=== PATIENT | male | born 1960 | race Caucasian/White ===

== ENCOUNTER 2016-10-18 10:37 | Emergency (ER) | payer BC ==
[2016-10-18] MEDS ORDERED: HYDROmorphone 0.5 MG/0.5 ML Syringe IVPUSH ONE (11:12)
[2016-10-18] MEDS ORDERED: Sodium Chloride 0.9% 10 ML Syringe FLUSH PRN (11:13)
--- NOTE | 2016-10-18 11:14 | EDM.PDOC ---
ED HPI GENERAL MEDICAL PROBLEM - General Chief Complaint: Back Pain or Injury Stated Complaint: SOB/BACK PAIN Time Seen by Provider: 10/18/16 11:00 Source of Information: Reports: Patient History Limitations: Reports: No Limitations - History of Present Illness INITIAL COMMENTS - FREE TEXT/NARRATIVE: 55-year-old male presents for evaluation and treatment of right sided severe back pain. Patient reports that the pain has been present for the last for 5 days. Reports that he has been using Biofreeze and Aleve but has had no relief. He reports that the pain is a sharp stabbing pain and rates it as a 9 out of 10 with movement. Reports the pain is a is 7 out of 10 currently and at rest. Pain is made worse with movement and deep breathing. Patient reports associated symptoms of diaphoresis, shortness of breath and a slight cough. Located on the right side and back. Patient denies any nausea, vomiting, chest pain, headaches , lightheadedness, dizziness, syncope, abdominal pain, fevers or chills. Patient also feels that he has been more gassy the last 3 days. Patient reports that he currently smokes 3 cores of a pack of cigarettes a day. He has smoked for the last 40 years. Reports a smokes 2 packs a day at the most. Patient has no history of diabetes. Reports that he has hepatitis C and is currently on treatment for this. 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 He denies any known trauma to the area. Right Upper Back Pain Score (Numeric/FACES): 10 - Related Data Allergies Allergy/AdvReac Type Severity Reaction Status Date / Time codeine Allergy Nausea Verified 10/18/16 11:00 Home Meds: Home Meds Paxil. 06/13/16 [History] oxyCODONE HCl/Acetaminophen [Percocet 5-325 mg Tablet] 1 - 2 each PO Q6HR PRN # 20 tablet 06/13/16 [Rx] Ibuprofen 800 mg PO TID #30 tablet 10/18/16 [Rx] Orphenadrine [Norflex] 100 mg PO BID #20 tab.er 10/18/16 [Rx] Past Medical History Other HEENT History: wears reading glasses Other Respiratory History: states pt snores and stops breathing for brief periods. Other Musculoskeletal History: L) index finger--tip amputation. Psychiatric History: Reports: Anxiety, Depression - Infectious Disease History Infectious Disease History: Reports: Hepatitis C - Past Surgical History GI Surgical History: Reports: Cholecystectomy Other Musculoskeletal Surgeries/Procedures:: pins/plate to R) ankle, L) shoulder rotator cuff surgery Social & Family History - Tobacco Use Smoking Status *Q: Current Every Day Smoker Years of Tobacco use: 35 Packs/Tins Daily: 1 - Caffeine Use Caffeine Use: Reports: Coffee, Tea - Alcohol Use Days Per Week of Alcohol Use: 2 Number of Drinks Per Day: 6 Total Drinks Per Week: 12 - Recreational Drug Use Recreational Drug Use: No Drug Use in Last 12 Months: No Recreational Drug Type: Reports: Marijuana/Hashish, Methamphetamine ED ROS GENERAL - Review of Systems Review Of Systems: See Below Constitutional: Denies: Fever HEENT: Denies: Ear Pain, Sinus Problem Respiratory: Reports: Shortness of Breath, Cough Cardiovascular: Denies: Chest Pain, Lightheadedness, Syncope GI/Abdominal: Denies: Abdominal Pain, Nausea, Vomiting Musculoskeletal: Reports: Back Pain (right upper back; worse with movement) Neurological: Denies: Headache ED EXAM, UPPER BACK/NECK PAIN - Physical Exam Exam: See Below Exam Limited By: No Limitations General Appearance: Alert, WD/WN, No Apparent Distress Nose Exam: Normal Inspection Throat/Mouth Exam: Normal Inspection, Normal Lips, Normal Voice, No Airway Compromise Cardiovascular/Respiratory: Regular Rate, Rhythm, No M/R/G, Normal Peripheral Pulses GI/Abdominal: Soft, Non-Tender Back Exam: Normal Inspection, Paraspinal Tenderness (inferior to the right scapula). No: Vertebral Tenderness Extremities: Normal Inspection, Normal Range of Motion (pain with ROM of the right shoulder) Neurologic: Alert, Normal Mood/Affect Psychiatric: Normal Affect, Normal Mood Skin Exam: Normal Color, Warm/Dry EKG INTERPRETATION EKG Date: 10/18/16 Time: 11:15 Rhythm: NSR Rate (Beats/Min): 53 [place]: Normal P-Wave: Present QRS: Normal ST-T: Normal QT: Normal EKG Interpretation Comments: Subtle ST elevation in V2. Q wave in V2. Reviewed by myself and Dr. Sona Duggan Course - Vital Signs Last Recorded V/S: Last Vital Signs Temp 36.1 C 10/18/16 11:00 Pulse 49 L 10/18/16 13:21 Resp 13 10/18/16 13:21 BP 130/79 10/18/16 13:21 Pulse Ox 97 10/18/16 13:21 - Orders/Labs/Meds Orders: Active Orders 24 hr Category Date Time Status Cardiac Monitoring [RC] . DIRECTED Care 10/18/16 11:13 Active EKG 12 Lead [EKG Documentation Completion] [RC] STAT Care 10/18/16 11:12 Active Peripheral IV Care [RC] . DIRECTED Care 10/18/16 11:13 Active Chest 2V [CR] Stat Exams 10/18/16 11:13 Taken Peripheral IV Insertion Adult [OM.PC] Routine Oth 10/18/16 11:12 Ordered Labs: Laboratory Tests 10/18/16 10/18/16 10/18/16 Range/Units 11:11 11:11 11:11 WBC 7.45 (4.23-9.07) K/mm3 RBC 4.88 (4.63-6.08) M/mm3 Hgb 15.4 (13.7-17.5) gm/L Hct 43.3 (40.1-51.0) % MCV 88.7 (79.0-92.2) fl MCH 31.6 (25.7-32.2) pg MCHC 35.6 H (32.2-35.5) g/dl RDW Std Deviation 42.0 (35.1-43.9) fL Plt Count 148 L (163-337) K/mm3 MPV 11.0 (9.4-12.3) fl Neutrophils % (Manual) 37 L (40-60) % Band Neutrophils % 0 (0-10) % Lymphocytes % (Manual) 47 H (20-40) % Atypical Lymphs % 0 % Monocytes % (Manual) 9 (2-10) % Eosinophils % (Manual) 5 (0.8-7.0) % Basophils % (Manual) 2 H (0.2-1.2) Platelet Estimate Adequate RBC Morph Comment Normal D-Dimer, Quantitative 0.19 (0.19-0.59) mg/L Sodium 137 (136-145) mEq/L Potassium 3.9 (3.5-5.1) mEq/L Chloride 103 (98-107) mEq/L Carbon Dioxide 23 (21-32) mEq/L Anion Gap 14.9 (5-15) BUN 20 H (7-18) mg/dL Creatinine 1.0 (0.7-1.3) mg/dL Est Cr Clr Drug Dosing 77.09 mL/min Estimated GFR (MDRD) > 60 (>60) mL/min BUN/Creatinine Ratio 20.0 H (14-18) Glucose 103 (74-106) mg/dL Calcium 9.7 (8.5-10.1) mg/dL Total Bilirubin 0.5 (0.2-1.0) mg/dL AST 118 H (15-37) U/L ALT 154 H (16-63) U/L Alkaline Phosphatase 58 (46-116) U/L Troponin I < 0.017 (0.00-0.056) ng/mL Total Protein 8.0 (6.4-8.2) g/dl Albumin 4.2 (3.4-5.0) g/dl Globulin 3.8 gm/dL Albumin/Globulin Ratio 1.1 (1-2) Meds: Medications Discontinued Medications Generic Name Dose Route Start Last Admin Trade Name Freq PRN Reason Stop Dose Admin Hydromorphone HCl 0.5 mg 10/18/16 11:12 10/18/16 11:25 Dilaudid IVPUSH 10/18/16 11:13 0.5 mg ONETIME ONE Administration Ketorolac Tromethamine 30 mg 10/18/16 12:23 10/18/16 12:50 Toradol IVPUSH 10/18/16 12:24 30 mg ONETIME ONE Administration Ondansetron HCl 4 mg 10/18/16 11:35 10/18/16 11:59 Zofran IVPUSH 10/18/16 11:36 Not Given ONETIME ONE Sodium Chloride 10 ml 10/18/16 11:13 10/18/16 12:52 Saline Flush FLUSH 10 ml ASDIRECTED PRN Administration Keep Vein Open - Radiology Interpretation Free Text/Narrative:: chest 2 view shows no acute intrathoracic process. - Re-Assessments/Exams Free Text/Narrative Re-Assessment/Exam: 10/18/16 13:00 Labs returned. White blood cell count 7.45, hemoglobin 15.4 platelets are 148. Sodium is 137, potassium 3.9 chloride is 103. AST is 118, ALT is 154 and alkaline phosphatase is 58. glucose is 103. Creatinine is 1.0. Troponin is within normal at < 0.017. D-dimer is within normal limits at 0.19. I discussed the labs, ekg and chest xray with the patient. I feel this is likely from a muscle spasm. Pain is reproducable with palpation and movement. Patient had good relief with the Dilaudid presents requesting more pain medication. I will give him some Toradol IV. Will discharge home at this time. Discharge instructions as documented. Departure - Departure Time of Disposition: 13:04 Disposition: Home, Self-Care 01 Condition: Fair Clinical Impression: Muscle spasm - Discharge Information Prescriptions: Ibuprofen 800 mg PO TID #30 tablet Orphenadrine [Norflex] 100 mg PO BID #20 tab.er Instructions: Muscle Cramps and Spasms Referrals: Diane Terrazas PA-C [Primary Care Provider] - Forms: ED Department Discharge, Return to Work/School Form Additional Instructions: Take the Norflex as prescribed. 1 tablet twice a day. This medications for muscle relaxation. this Medication may make you drowsy. Do not drive or operative machinery until you know how this medication affects you. Ibuprofen 800 mg 1 tab 3 times a day for pain. Note given for work. I recommend using moist heat for 5 times a day for 10-15 minutes to the sore area. Please return to the ER if symptoms change or worsen. Follow-up with your primary care provider this week or next week for a recheck. - My Orders Last 24 Hours: My Active Orders 10/18/16 11:12 EKG 12 Lead [EKG Documentation Completion] [RC] STAT Peripheral IV Insertion Adult [OM.PC] Routine 10/18/16 11:13 Cardiac Monitoring [RC] . DIRECTED Peripheral IV Care [RC] . DIRECTED Chest 2V [CR] Stat - Assessment/Plan Last 24 Hours: My Active Orders 10/18/16 11:12 EKG 12 Lead [EKG Documentation Completion] [RC] STAT Peripheral IV Insertion Adult [OM.PC] Routine 10/18/16 11:13 Cardiac Monitoring [RC] . DIRECTED Peripheral IV Care [RC] . DIRECTED Chest 2V [CR] Stat
[2016-10-18] MEDS ORDERED: Ondansetron 4 MG/2 ML SDV IVPUSH ONE (11:35)
[2016-10-18] MEDS ORDERED: Ketorolac 30 MG/ML SDV IVPUSH ONE (12:23)
[2016-10-18 13:22] VITALS: BP 130/79
--- NOTE | 2016-10-19 07:16 | CR ---
Chest: Two views of the chest were obtained. Comparison: Previous chest x-ray of 06/13/16. Heart size and mediastinum are within normal limits. Lungs are clear. Bony structures are unremarkable for the patient's age. Incidental surgical clips are seen within the upper abdomen. Impression: 1. Nothing acute is seen on two-view chest x-ray. Diagnostic code #1
== END 2016-10-18 13:22 | disposition home or self-care (01) ==
LOC: JD.ED 10:37
DX: M62.830 Muscle spasm of back (principal); F17.210 Nicotine dependence, cigarettes, uncomplicated; F41.9 Anxiety disorder, unspecified; F32.9 Major depressive disorder, single episode, unspecified; Z90.49 Acquired absence of other specified parts of digestive tract; Z88.5 Allergy status to narcotic agent; Z89.022 Acquired absence of left finger(s)
CPT/HCPCS: 36415; 71020; 80053; 84484; 85025; 85379; 93005; 96374; 96375; 99284; J1170; J1885; J7050

== ENCOUNTER 2016-10-23 21:54 | Inpatient (IN) | payer BC ==
[2016-10-23] MEDS ORDERED: Ondansetron 4 MG/2 ML SDV IVPUSH ONE (22:22)
[2016-10-23] MEDS ORDERED: Sodium Chloride 0.9% 10 ML Syringe FLUSH PRN (22:22)
[2016-10-23] MEDS ORDERED: HYDROmorphone 1 MG/ML Syringe IVPUSH ONE (22:24)
[2016-10-23] MEDS ORDERED: Sodium Chloride 0.9% 1,000 ML IV SCH (22:30)
[2016-10-23] MEDS ORDERED: HYDROmorphone 0.5 MG/0.5 ML Syringe IVPUSH ONE (23:44)
--- NOTE | 2016-10-24 00:23 | EDM.PDOC ---
ED HPI GENERAL MEDICAL PROBLEM - General Chief Complaint: Flank Pain Stated Complaint: FLANK PAIN Time Seen by Provider: 10/23/16 22:15 Source of Information: Reports: Patient History Limitations: Reports: No Limitations - History of Present Illness INITIAL COMMENTS - FREE TEXT/NARRATIVE: The patient presents with right sided flank pain that radiates to the front. This started a few days ago and he was evaluated here. It was felt he had a pulled muscle. He was put on medication. He has gotten worse. He has nausea with it. He denies fever, chills, cough, chest pain or shortness of breath. He has no history of kidney stones. He has no dysuria or hematuria. He had his gallbladder removed years ago. Onset: Gradual Duration: Day(s): (5) Location: Reports: Abdomen (right upper and right flank) Quality: Reports: Sharp Severity: Severe Improves with: Reports: None Worsens with: Reports: None Associated Symptoms: Reports: Nausea/Vomiting. Denies: Chest Pain, Cough, Loss of Appetite, Shortness of Breath Right Flank Pain Score (Numeric/FACES): 10 - Related Data Allergies Allergy/AdvReac Type Severity Reaction Status Date / Time codeine Allergy Nausea Verified 10/23/16 22:05 Home Meds: Home Meds Paxil. 06/13/16 [History] oxyCODONE HCl/Acetaminophen [Percocet 5-325 mg Tablet] 1 - 2 each PO Q6HR PRN # 20 tablet 06/13/16 [Rx] Ibuprofen 800 mg PO TID #30 tablet 10/18/16 [Rx] Orphenadrine [Norflex] 100 mg PO BID #20 tab.er 10/18/16 [Rx] Past Medical History Other HEENT History: wears reading glasses Other Respiratory History: states pt snores and stops breathing for brief periods. Other Musculoskeletal History: L) index finger--tip amputation. Psychiatric History: Reports: Anxiety, Depression - Infectious Disease History Infectious Disease History: Reports: Hepatitis C - Past Surgical History Respiratory Surgical History: Reports: None GI Surgical History: Reports: Cholecystectomy Other Musculoskeletal Surgeries/Procedures:: pins/plate to R) ankle, L) shoulder rotator cuff surgery Social & Family History - Tobacco Use Smoking Status *Q: Current Every Day Smoker Years of Tobacco use: 40 Packs/Tins Daily: 0.7 Used Tobacco, but Quit: No Second Hand Smoke Exposure: No - Caffeine Use Caffeine Use: Reports: Coffee - Alcohol Use Days Per Week of Alcohol Use: 2 Number of Drinks Per Day: 6 Total Drinks Per Week: 12 - Recreational Drug Use Recreational Drug Use: No Drug Use in Last 12 Months: No Recreational Drug Type: Reports: Marijuana/Hashish, Methamphetamine ED ROS GENERAL - Review of Systems Review Of Systems: See Below Constitutional: Reports: No Symptoms HEENT: Reports: No Symptoms Respiratory: Reports: No Symptoms Cardiovascular: Reports: No Symptoms Endocrine: Reports: No Symptoms GI/Abdominal: Reports: Abdominal Pain, Nausea. Denies: Vomiting : Reports: Flank Pain. Denies: Dysuria, Hematuria Musculoskeletal: Reports: No Symptoms Skin: Reports: No Symptoms ED EXAM, GI/ABD - Physical Exam Exam: See Below Exam Limited By: No Limitations General Appearance: Alert, Moderate Distress Ears: Normal External Exam Nose: Normal Inspection Head: Atraumatic, Normocephalic Neck: Normal Inspection Respiratory/Chest: No Respiratory Distress, Lungs Clear, Normal Breath Sounds Cardiovascular: Regular Rate, Rhythm, No Edema, No Murmur GI/Abdominal: Soft, No Organomegaly, No Mass, Tenderness (Moderate to the right upper quadrant and to the right flank) Back Exam: CVA Tenderness (R) Course - Vital Signs Last Recorded V/S: Last Vital Signs Temp 98.6 F 10/23/16 22:02 Pulse 78 10/23/16 22:02 Resp 22 H 10/23/16 22:02 BP 154/115 H 10/23/16 22:02 Pulse Ox 97 10/23/16 22:02 - Orders/Labs/Meds Orders: Active Orders 24 hr Category Date Time Status Peripheral IV Care [RC] . DIRECTED Care 10/23/16 22:23 Active Abdomen Pelvis wo Cont [CT] Stat Exams 10/23/16 22:22 Taken Sodium Chloride 0.9% [Normal Saline] 1,000 ml Med 10/23/16 22:30 Active IV ASDIRECTED Sodium Chloride 0.9% [Saline Flush] Med 10/23/16 22:22 Active 10 ml FLUSH ASDIRECTED PRN ED Antiemetic Medication Reflex [OM.PC] Stat Oth 10/23/16 22:22 Ordered Peripheral IV Insertion Adult [OM.PC] Stat Oth 10/23/16 22:22 Ordered Medication Orders Sodium Chloride (Normal Saline) 1,000 mls @ 125 mls/hr IV ASDIRECTED GIRISH Last Admin: 10/23/16 22:37 Dose: 125 mls/hr Sodium Chloride (Saline Flush) 10 ml FLUSH ASDIRECTED PRN PRN Reason: Keep Vein Open Last Admin: 10/23/16 22:37 Dose: 10 ml Labs: Laboratory Tests 10/23/16 10/23/16 10/23/16 Range/Units 22:30 22:30 22:30 WBC 10.44 H (4.23-9.07) K/mm3 RBC 4.59 L (4.63-6.08) M/mm3 Hgb 14.5 (13.7-17.5) gm/L Hct 41.1 (40.1-51.0) % MCV 89.5 (79.0-92.2) fl MCH 31.6 (25.7-32.2) pg MCHC 35.3 (32.2-35.5) g/dl RDW Std Deviation 42.4 (35.1-43.9) fL Plt Count 152 L (163-337) K/mm3 MPV 10.5 (9.4-12.3) fl Neut % (Auto) 61.9 (34.0-67.9) % Lymph % (Auto) 23.8 (21.8-53.1) % [place] % (Auto) 12.0 (5.3-12.2) % Eos % (Auto) 1.6 (0.8-7.0) Baso % (Auto) 0.5 (0.1-1.2) % Neut # (Auto) 6.47 H (1.78-5.38) K/mm3 Lymph # (Auto) 2.48 (1.32-3.57) K/mm3 [place] # (Auto) 1.25 H (0.30-0.82) K/mm3 Eos # (Auto) 0.17 (0.04-0.54) K/mm3 Baso # (Auto) 0.05 (0.01-0.08) K/mm3 D-Dimer, Quantitative 0.28 (0.19-0.59) mg/L Sodium 141 (136-145) mEq/L Potassium 3.9 (3.5-5.1) mEq/L Chloride 103 (98-107) mEq/L Carbon Dioxide 24 (21-32) mEq/L Anion Gap 17.9 H (5-15) BUN 23 H (7-18) mg/dL Creatinine 1.3 (0.7-1.3) mg/dL Est Cr Clr Drug Dosing 59.30 mL/min Estimated GFR (MDRD) 58 (>60) mL/min BUN/Creatinine Ratio 17.7 (14-18) Glucose 139 H (74-106) mg/dL Calcium 9.5 (8.5-10.1) mg/dL Total Bilirubin 0.6 (0.2-1.0) mg/dL AST 88 H (15-37) U/L ALT 100 H (16-63) U/L Alkaline Phosphatase 64 (46-116) U/L Total Protein 7.3 (6.4-8.2) g/dl Albumin 3.7 (3.4-5.0) g/dl Globulin 3.6 gm/dL Albumin/Globulin Ratio 1.0 (1-2) Lipase 160 (73-393) U/L Urine Color (Yellow) Urine Appearance (Clear) Urine pH (5.0-8.0) Ur Specific [place] (1.005-1.030) Urine Protein (Negative) Urine Glucose (UA) (Negative) Urine Ketones (Negative) Urine Occult Blood (Negative) Urine Nitrite (Negative) Urine Bilirubin (Negative) Urine Urobilinogen (0.2-1.0) Ur Leukocyte Esterase (Negative) Urine RBC (0-5) /hpf Urine WBC (0-5) /hpf Ur Epithelial Cells (0-5) /hpf Amorphous Sediment (NOT SEEN) /hpf Urine Bacteria (FEW) /hpf Urine Mucus (FEW) /hpf 10/23/16 Range/Units 22:54 WBC (4.23-9.07) K/mm3 RBC (4.63-6.08) M/mm3 Hgb (13.7-17.5) gm/L Hct (40.1-51.0) % MCV (79.0-92.2) fl MCH (25.7-32.2) pg MCHC (32.2-35.5) g/dl RDW Std Deviation (35.1-43.9) fL Plt Count (163-337) K/mm3 MPV (9.4-12.3) fl Neut % (Auto) (34.0-67.9) % Lymph % (Auto) (21.8-53.1) % [place] % (Auto) (5.3-12.2) % Eos % (Auto) (0.8-7.0) Baso % (Auto) (0.1-1.2) % Neut # (Auto) (1.78-5.38) K/mm3 Lymph # (Auto) (1.32-3.57) K/mm3 [place] # (Auto) (0.30-0.82) K/mm3 Eos # (Auto) (0.04-0.54) K/mm3 Baso # (Auto) (0.01-0.08) K/mm3 D-Dimer, Quantitative (0.19-0.59) mg/L Sodium (136-145) mEq/L Potassium (3.5-5.1) mEq/L Chloride (98-107) mEq/L Carbon Dioxide (21-32) mEq/L Anion Gap (5-15) BUN (7-18) mg/dL Creatinine (0.7-1.3) mg/dL Est Cr Clr Drug Dosing mL/min Estimated GFR (MDRD) (>60) mL/min BUN/Creatinine Ratio (14-18) Glucose (74-106) mg/dL Calcium (8.5-10.1) mg/dL Total Bilirubin (0.2-1.0) mg/dL AST (15-37) U/L ALT (16-63) U/L Alkaline Phosphatase (46-116) U/L Total Protein (6.4-8.2) g/dl Albumin (3.4-5.0) g/dl Globulin gm/dL Albumin/Globulin Ratio (1-2) Lipase (73-393) U/L Urine Color Yellow (Yellow) Urine Appearance Slt cloudy H (Clear) Urine pH 8.0 (5.0-8.0) Ur Specific [place] 1.015 (1.005-1.030) Urine Protein Trace H (Negative) Urine Glucose (UA) Negative (Negative) Urine Ketones Negative (Negative) Urine Occult Blood Negative (Negative) Urine Nitrite Negative (Negative) Urine Bilirubin Negative (Negative) Urine Urobilinogen 0.2 (0.2-1.0) Ur Leukocyte Esterase Negative (Negative) Urine RBC Not seen (0-5) /hpf Urine WBC Not seen (0-5) /hpf Ur Epithelial Cells 0-5 (0-5) /hpf Amorphous Sediment Many H (NOT SEEN) /hpf Urine Bacteria Few (FEW) /hpf Urine Mucus Not seen (FEW) /hpf Meds: Medications Generic Name Dose Route Start Last Admin Trade Name Freq PRN Reason Stop Dose Admin Sodium Chloride 1,000 mls @ 125 mls/hr 10/23/16 22:30 10/23/16 22:37 Normal Saline IV 125 mls/hr ASDIRECTED GIRISH Administration Sodium Chloride 10 ml 10/23/16 22:22 10/23/16 22:37 Saline Flush FLUSH 10 ml ASDIRECTED PRN Administration Keep Vein Open Discontinued Medications Generic Name Dose Route Start Last Admin Trade Name Freq PRN Reason Stop Dose Admin Hydromorphone HCl 1 mg 10/23/16 22:24 10/23/16 22:38 Dilaudid IVPUSH 10/23/16 22:25 1 mg ONETIME ONE Administration Hydromorphone HCl 0.5 mg 10/23/16 23:44 10/23/16 23:52 Dilaudid IVPUSH 10/23/16 23:45 0.5 mg ONETIME ONE Administration Ondansetron HCl 4 mg 10/23/16 22:22 10/23/16 22:36 Zofran IVPUSH 10/23/16 22:23 4 mg ONETIME ONE Administration - Re-Assessments/Exams Free Text/Narrative Re-Assessment/Exam: 10/24/16 00:21 I ordered an IV NS at 125mL/hr, zofran 4mg IV, dilaudid 1mg IV, labs, UA and a CT of his abdomen and pelvis without contrast. 10/24/16 00:23 His WBC was slightly elevated at 10.44. His D-dimer was negative. His AST was elevated at 88. His ALT was elevated at 100. His lipase was negative. His UA was negative. His CT shows early evidence of small bowel obstruction likely from adhesions involving the jejunal ileal junction region. He had more pain so I gave him some dilaudid. I feel he needs to be admitted. I called Dr Andrade and he agreed to the admission. Departure - Departure Time of Disposition: 00:25 Disposition: Admitted As Inpatient 68 Condition: Good Clinical Impression: Small bowel obstruction - Discharge Information Forms: ED Department Discharge - My Orders Last 24 Hours: My Active Orders 10/23/16 22:22 Abdomen Pelvis wo Cont [CT] Stat Sodium Chloride 0.9% [Saline Flush] 10 ml FLUSH ASDIRECTED PRN ED Antiemetic Medication Reflex [OM.PC] Stat Peripheral IV Insertion Adult [OM.PC] Stat 10/23/16 22:23 Peripheral IV Care [RC] . DIRECTED 10/23/16 22:30 Sodium Chloride 0.9% [Normal Saline] 1,000 ml IV ASDIRECTED - Assessment/Plan Last 24 Hours: My Active Orders 10/23/16 22:22 Abdomen Pelvis wo Cont [CT] Stat Sodium Chloride 0.9% [Saline Flush] 10 ml FLUSH ASDIRECTED PRN ED Antiemetic Medication Reflex [OM.PC] Stat Peripheral IV Insertion Adult [OM.PC] Stat 10/23/16 22:23 Peripheral IV Care [RC] . DIRECTED 10/23/16 22:30 Sodium Chloride 0.9% [Normal Saline] 1,000 ml IV ASDIRECTED
[2016-10-24] MEDS ORDERED: Ondansetron 4 MG/2 ML SDV IVPUSH PRN (01:09)
[2016-10-24] MEDS: HYDROmorphone 0.5 MG/0.5 ML Syringe IVPUSH PRN ×3 (01:31→05:20)
[2016-10-24] MEDS: Sodium Chloride 0.9% 1,000 ML IV SCH ×2 (05:20→21:13)
--- NOTE | 2016-10-24 06:10 | PCM.HP ---
H&P History of Present Illness - General Date of Service: 10/24/16 Admit Problem/Dx: Admission Diagnosis/Problem Admission Diagnosis/Problem Small bowel obstruction Source of Information: Patient, Old Records, Provider, RN Notes Reviewed History Limitations: Reports: Physical Impairment - History of Present Illness Initial Comments - Free Text/Narative: This is a 55-year-old fairly healthy white male with no significant past medical history except for hepatitis C infection currently on medical treatment , and society and depression who comes in the [facility] to the emergency department with complaint of right-sided flank pain with radiation to the front. His symptom started a few days ago. Patient denies any trauma or unusual activity. He does carry or lift heavy things. He denies any other symptoms. No GI/ symptoms. Patient denies any recent abdominal surgery. He had his gallbladder taken out years ago. His symptom is exacerbated by movements. His initial workup in emergency department shows a CBC remarkable for WBC of 10.44, RBC of 4.59, platelet of 132, neutrophil counts of 6.47, and monophil counts of 1.25. Hs d- dimer is 0.28. His chemistry is remarkable for anion gap of 17.9, BUN of 23, glucose of 139, AST of 88, and ALT of 100. UA is unremarkable for UTI. His abdominal CT scan [facility] report reads early evidence of small bowel obstruction likely from adhesions involving the jejunal-ileal junction region. Patient was admitted for a small bowel structure and and right flank plain. Right Flank Pain Score (Numeric/FACES): 10 - Related Data Allergies/Adverse Reactions: Allergies Allergy/AdvReac Type Severity Reaction Status Date / Time codeine Allergy Nausea Verified 10/23/16 22:05 Home Medications: Home Meds oxyCODONE HCl/Acetaminophen [Percocet 5-325 mg Tablet] 1 - 2 each PO Q6HR PRN # 20 tablet 06/13/16 [Rx] Ibuprofen 800 mg PO TID #30 tablet 10/18/16 [Rx] Orphenadrine [Norflex] 100 mg PO BID #20 tab.er 10/18/16 [Rx] Past Medical History Other HEENT History: wears reading glasses Other Respiratory History: states pt snores and stops breathing for brief periods. Gastrointestinal History: Reports: Bowel Obstruction Other Musculoskeletal History: L) index finger--tip amputation. Psychiatric History: Reports: Anxiety, Depression - Infectious Disease History Infectious Disease History: Reports: Chicken Pox, Hepatitis C - Past Surgical History Respiratory Surgical History: Reports: None GI Surgical History: Reports: Cholecystectomy Other Musculoskeletal Surgeries/Procedures:: pins/plate to R) ankle, L) shoulder rotator cuff surgery Social & Family History - Family History Family Medical History: Noncontributory - Tobacco Use Smoking Status *Q: Current Every Day Smoker Years of Tobacco use: 40 Packs/Tins Daily: 1 Used Tobacco, but Quit: No Second Hand Smoke Exposure: No - Caffeine Use Caffeine Use: Reports: Coffee Other Caffeine Use: 3 or 4 cups a day - Alcohol Use Days Per Week of Alcohol Use: 2 Number of Drinks Per Day: 6 Total Drinks Per Week: 12 - Recreational Drug Use Recreational Drug Use: No Drug Use in Last 12 Months: No Recreational Drug Type: Reports: Marijuana/Hashish, Methamphetamine H&P Review of Systems - Review of Systems: Review Of Systems: See Below General: Denies: Fever, Chills, Malaise, Weakness, Fatigue, Decreased Appetite, Weight Loss HEENT: Reports: No Symptoms Pulmonary: Denies: Shortness of Breath Cardiovascular: Denies: Chest Pain, Palpitations, Dyspnea on Exertion, Lightheadedness Gastrointestinal: Reports: Abdominal Pain, Nausea, Other (Flank Pain) Genitourinary: Reports: No Symptoms Musculoskeletal: Reports: No Symptoms Skin: Denies: Cyanosis, Jaundice, Mottled, Bruising, Rash, Erythema, Wound, Lesions Psychiatric: Denies: Depression, Anxiety, Hallucinations Neurological: Denies: Confusion, Difficulty Walking, Weakness, Gait Disturbance Hematologic/Lymphatic: Reports: No Symptoms Immunologic: Reports: No Symptoms Exam - Exam Exam: See Below - Vital Signs Vital Signs: Last Vital Signs Temp 37.3 C 10/24/16 02:43 Pulse 67 10/24/16 02:43 Resp 20 10/24/16 02:43 BP 142/91 H 10/24/16 02:43 Pulse Ox 96 10/24/16 02:43 Weight: 76.748 kg - Exam Quality Assessment: No: Supplemental Oxygen General: Oriented, Cooperative, Moderate Distress HEENT: Conjunctiva Clear, EACs Clear, EOMI, Hearing Intact, Mucosa Moist & Defer[place] , Nares Patent, Normal Nasal Septum, Posterior Pharynx Clear, Pupils Equal, Pupils Reactive Neck: Supple, Trachea Midline, Full Range of Motion Lungs: Clear to Auscultation, Normal Respiratory Effort Cardiovascular: Regular Rate, Regular Rhythm Abdomen: Normal Bowel Sounds, Soft. No: Organomegaly, Peritoneal Signs, Distention, Guarding, Rigidity, Rebound, Tenderness (Male) Exam: Deferred Rectal (Males) Exam: Deferred Back Exam: Normal Inspection, CVA Tenderness (R), Decreased Range of Motion, Muscle Spasm, Paraspinal Tenderness, Vertebral Tenderness Extremities: Normal Inspection, Normal Pulses Peripheral Pulses: 3+: Posterior Tibial (L), Posterior Tibial (R), Dorsalis Pedis (L), Dorsalis Pedis (R) Skin: Warm, Dry, Intact Neuro Extensive - Mental Status: Oriented x3, Normal Cognition, Memory Intact Neuro Extensive - Motor, Sensory, Reflexes: CN II-XII Intact (limited but fairly intact), Normal Gait Psychiatric: Normal Affect, Normal Mood, Other (Sedated) - Patient Data Result Diagrams: 10/23/16 22:30 10/23/16 22:30 *Q Meaningful Use (ADM) - VTE *Q VTE Criteria *Q: - Stroke *Q Stroke Criteria *Q: - AMI *Q AMI Criteria *Q: Problem List Initiated/Reviewed/Updated: Yes Orders Last 24hrs: Active Orders 24 hr Category Date Time Status Bedrest [RC] ASDIRECTED Care 10/24/16 01:10 Active NPO Now [Nothing per Oral Now Diet] [DIET] Diet 10/24/16 Breakfast Active HYDROmorphone [Dilaudid] Med 10/24/16 01:07 Active 0.5 mg IVPUSH Q1H PRN Ondansetron [Zofran] Med 10/24/16 01:09 Active 4 mg IVPUSH Q6H PRN Sodium Chloride 0.9% [Normal Saline] 1,000 ml Med 10/24/16 01:15 Active IV ASDIRECTED Code Status [Resuscitation Status] Routine Resus Stat 10/24/16 01:10 Ordered Medication Orders Hydromorphone HCl (Dilaudid) 0.5 mg IVPUSH Q1H PRN PRN Reason: Pain Last Admin: 10/24/16 05:20 Dose: 0.5 mg Admin: 10/24/16 02:48 Dose: 0.5 mg Admin: 10/24/16 01:31 Dose: 0.5 mg Sodium Chloride (Normal Saline) 1,000 mls @ 125 mls/hr IV ASDIRECTED [facility] Last Admin: 10/23/16 22:37 Dose: 125 mls/hr Sodium Chloride (Normal Saline) 1,000 mls @ 150 mls/hr IV ASDIRECTED [facility] Last Admin: 10/24/16 05:20 Dose: 150 mls/hr Ondansetron HCl (Zofran) 4 mg IVPUSH Q6H PRN PRN Reason: Nausea Sodium Chloride (Saline Flush) 10 ml FLUSH ASDIRECTED PRN PRN Reason: Keep Vein Open Last Admin: 10/23/16 22:37 Dose: 10 ml Assessment/Plan Comment:: Assessment/Plan: Acute: Right Flank/Back Pain - MSK in etiology - Risk factor: Light heavy things - Pain localized to his flank and goes up to his back - No obvious signs of trauma - Tender on Palpation - CT scan: no acute abnormal findings Muscle Spasm - Zanaflex TID will d/c Norflex - PT/OT for eval SBO - 2/2 adhesions involving jejunal ileal junction - Has hx/o Cholecystectomy - Will consult Dr. Leung for further input Chronic: Hep C Infection, on current treatment Thrombocyopenia Hepatitis Nicotine Dependence Plan: Admitted to Med-Surg Routine AM Labs Hold all Home Meds NPO for now Dr. Leung consult PT/OT eval SW/CM for d/c planning
[2016-10-24] MEDS ORDERED: Metoprolol Tartrate 5 MG/5 ML SDV IVPUSH PRN (06:56)
[2016-10-24] MEDS ORDERED: hydrALAZINE 20 MG/ML SDV IVPUSH PRN (06:56)
[2016-10-24] MEDS ORDERED: Promethazine 12.5 MG in Sodium Chloride 0.9% 50 ML IV PRN (06:57)
[2016-10-24] MEDS ORDERED: Ondansetron 4 MG/2 ML SDV IV PRN (06:57)
[2016-10-24] MEDS ORDERED: LORazepam 2 MG/ML MDV IV PRN (06:57)
[2016-10-24] MEDS ORDERED: Polyethylene Glycol 3350 Powder 17 GM Packet PO PRN (06:57)
[2016-10-24] MEDS ORDERED: Bisacodyl 5 MG Tab PO PRN (06:57)
[2016-10-24] MEDS ORDERED: Acetaminophen 325 MG Tab PO PRN (06:57)
[2016-10-24] MEDS ORDERED: Temazepam 15 MG Cap PO PRN (06:57)
[2016-10-24] MEDS ORDERED: Albuterol/Ipratropium 3.0-0.5 MG/3 ML Neb Soln NEB PRN (06:57)
[2016-10-24] MEDS ORDERED: Scopolamine 1.5 MG Transdermal Patch TOP ONE (07:02)
[2016-10-24] MEDS ORDERED: Dextrose 5%-0.9% NaCl 1,000 ML IV SCH (07:15)
[2016-10-24] MEDS: HYDROmorphone 1 MG/ML Syringe IVPUSH PRN ×3 (08:43→17:26)
[2016-10-24] MEDS: Nicotine 21 MG/24 Hr Patch TRDERM SCH (08:44)
[2016-10-24] MEDS: Metoclopramide 10 MG/2 ML SDV IVPUSH SCH ×2 (08:46→13:08)
[2016-10-24] MEDS ORDERED: Enoxaparin 40 MG/0.4 ML Syringe SUBCUT SCH (09:00)
--- NOTE | 2016-10-24 11:06 | PCM.CONS ---
H&P History of Present Illness - General Date of Service: 10/24/16 Admit Problem/Dx: Admission Diagnosis/Problem Admission Diagnosis/Problem Small bowel obstruction Source of Information: Patient, Family, Old Records, Provider History Limitations: Reports: No Limitations - History of Present Illness Initial Comments - Free Text/Narative: The patient is a 55-year-old man who I was asked to see in consultation by Dr. Jennifer Andrade for evaluation for possible small bowel obstruction. The patient had presented to the emergency department on October 24 with right flank pain. He denied any nausea or vomiting. He denied any abdominal pain. Workup in the emergency department included a non-contrasted CT scan for rule out of renal stones. This showed what appeared to be some dilation of the jejunum consistent with "early possible small bowel obstruction" according to the radiology read, therefore a general surgery consultation had been requested. Upon visiting with the patient and his , the patient has had no abdominal symptoms whatsoever. He thinks on questioning that he may have had a somewhat decreased amount of flatus lately. He is not particularly hungry due to the pain in his right flank. He did have a normal bowel movement on Sunday or Sunday. He does not feel bloated. He does not feel nauseous. He has not vomited either in the hospital or at home. He states that the right flank pain began several days ago and has been increasing in severity. Anything touching the right flank, in about the midaxillary line, causes severe pain. He has no history of trauma. He denies any melena, hematochezia. No one else is sick in his family. He has tried taking a variety of medications he had at home, over- the-counter and prescription medications (muscle relaxers), which provided little relief. The patient and his are also concerned that over the past several days the patient has developed multiple nosebleeds spontaneously. He has no personal history of difficulty with epistaxis. He denies any bruising or petechia. He denies any other areas of spontaneous bleeding, such as the gums, etc. He has had no recent travel. Right Flank Pain Score (Numeric/FACES): 10 - Related Data Allergies/Adverse Reactions: Allergies Allergy/AdvReac Type Severity Reaction Status Date / Time codeine Allergy Nausea Verified 10/23/16 22:05 Home Medications: Home Meds oxyCODONE HCl/Acetaminophen [Percocet 5-325 mg Tablet] 1 - 2 each PO Q6HR PRN # 20 tablet 06/13/16 [Rx] Ibuprofen 800 mg PO TID #30 tablet 10/18/16 [Rx] Orphenadrine [Norflex] 100 mg PO BID #20 tab.er 10/18/16 [Rx] Past Medical History Other HEENT History: wears reading glasses Other Respiratory History: states pt snores and stops breathing for brief periods. Gastrointestinal History: Reports: Hepatitis (C- under tx with Dr. Hammer) Other Musculoskeletal History: L) index finger--tip amputation. Psychiatric History: Reports: Anxiety, Depression - Infectious Disease History Infectious Disease History: Reports: Chicken Pox, Hepatitis C - Past Surgical History Respiratory Surgical History: Reports: None GI Surgical History: Reports: Cholecystectomy Other Musculoskeletal Surgeries/Procedures:: pins/plate to R) ankle, L) shoulder rotator cuff surgery Social & Family History - Family History Family Medical History: Noncontributory Other Family History: [place] - Alive, Heart disease, HTN, High cholesterol, Asthma, DM FA - , Parkinsonism, Laryngeal cancer BRO - 1 has had a stroke, 1 with seizures - Tobacco Use Smoking Status *Q: Current Every Day Smoker Years of Tobacco use: 40 Packs/Tins Daily: 1 Used Tobacco, but Quit: No Second Hand Smoke Exposure: No - Caffeine Use Caffeine Use: Reports: Coffee Other Caffeine Use: 3 or 4 cups a day - Alcohol Use Alcohol Use History: Yes Days Per Week of Alcohol Use: 2 Number of Drinks Per Day: 6 Total Drinks Per Week: 12 - Recreational Drug Use Recreational Drug Use: No Drug Use in Last 12 Months: No Recreational Drug Type: Reports: Marijuana/Hashish, Methamphetamine - Living Situation & Occupation Living situation: Reports: Occupation: Employed Social History Comment: 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 Has 3 sons. H&P Review of Systems - Review of Systems: Review Of Systems: See Below General: Reports: No Symptoms HEENT: Reports: No Symptoms Pulmonary: Reports: Pleuritic Chest Pain (Right side ) Cardiovascular: Reports: Chest Pain (Right lateral flank, inferior aspect of chest over ribs ). Denies: Palpitations, Dyspnea on Exertion, Lightheadedness, Syncope Gastrointestinal: Reports: Other (Decreased flatus ). Denies: Abdominal Pain, Black Stool, Bloody Stool, Constipation (Last BM Sat or Sun and was normal ), Diarrhea, Distension, Hematochezia, Melena, Nausea, Vomiting Genitourinary: Reports: Flank Pain Musculoskeletal: Reports: No Symptoms Skin: Reports: No Symptoms Psychiatric: Reports: No Symptoms Neurological: Reports: No Symptoms Hematologic/Lymphatic: Reports: No Symptoms Immunologic: Reports: No Symptoms Exam - Exam Exam: See Below - Vital Signs Vital Signs: Last Vital Signs Temp 98.7 F 10/24/16 09:05 Pulse 67 10/24/16 02:43 Resp 20 10/24/16 09:05 BP 147/83 H 10/24/16 09:05 Pulse Ox 93 L 10/24/16 09:05 Weight: 169 lb 3.2 oz - Exam Quality Assessment: No: Supplemental Oxygen General: Alert, Oriented, Cooperative, Mild Distress HEENT: Conjunctiva Clear. No: Scleral Icterus Neck: Supple, Trachea Midline, 2 Lungs: Clear to Auscultation, Normal Respiratory Effort Cardiovascular: Regular Rate, Regular Rhythm Abdomen: Soft. No: Organomegaly, Peritoneal Signs, Distention, Guarding, Rigidity, Rebound, Tenderness, Hernia (Male) Exam: Deferred Rectal (Males) Exam: Deferred Back Exam: Other (Pain with palpation at about the 8 or 9th rib in the mid axillary line on the right - exquisitely TTP in this one area along the ribs, no evidence of trauma in this site) Extremities: No: Clubbing, Cyanosis, Calf Tenderness, Edema Skin: Warm, Dry, Intact Neurological: Cranial Nerves Intact, Normal Speech. No: Focal Deficit Neuro Extensive - Mental Status: Alert, Oriented x3, Normal Mood/Affect, Normal Cognition, Memory Intact Psychiatric: Alert, Normal Affect, Normal Mood - Patient Data Result Diagrams: 10/26/16 05:56 10/26/16 05:56 Imaging Impressions Last 24 hrs: I personally reviewed his non-contrasted CT of the Abd/Pelvis from the ED. Consult PN Assessment/Plan Procedures: Procedures ASSAY OF TROPONIN QUANT (10/18/16) CHEST X-RAY 2VW FRONTAL&LATL (10/18/16) COMPLETE CBC W/AUTO DIFF WBC (10/18/16) COMPREHEN METABOLIC PANEL (10/18/16) ELECTROCARDIOGRAM TRACING (10/18/16) EMERGENCY DEPT VISIT (10/18/16) EMERGENCY DEPT VISIT (06/13/16) EMERGENCY DEPT VISIT (05/07/16) EMERGENCY DEPT VISIT (02/18/16) FIBRIN DEGRADATION QUANT (10/18/16) HYDRATE IV INFUSION ADD-ON (05/07/16) ROUTINE VENIPUNCTURE (10/18/16) THER/PROPH/DIAG INJ IV PUSH (10/18/16) THER/PROPH/DIAG INJ SC/IM (12/27/14) TX/PRO/DX INJ NEW DRUG ADDON (10/18/16) URINALYSIS AUTO W/O SCOPE (05/07/16) X-RAY EXAM OF SHOULDER (10/03/14) X-RAY EXAM RIBS UNI 2 VIEWS (12/27/14) (1) Right flank pain SNOMED Code(s): 904286301 Code(s): R10.9 - UNSPECIFIED ABDOMINAL PAIN Priority: High Current Visit : Yes (2) Epistaxis not due to trauma SNOMED Code(s): 55991274 Code(s): R04.0 - EPISTAXIS Priority: Medium Current Visit: Yes (3) Hepatitis C SNOMED Code(s): 44286864 Code(s): B19.20 - UNSPECIFIED VIRAL HEPATITIS C WITHOUT HEPATIC COMA Priority: Medium Current Visit: No Qualifiers: Viral hepatitis chronicity: chronic Hepatic coma status: without hepatic coma Qualified Code(s): B18.2 - Chronic viral hepatitis C Problem List Initiated/Reviewed/Updated: Yes My Orders last 24 hours: My Active Orders 10/24/16 10:58 Abdomen Pelvis w Cont [CT] Stat 10/24/16 11:00 Lidocaine 5% [Lidoderm 5%] 700 mg TOP Q24H Plan: 55 yo M with right flank pain in mid axillary line of uncertain etiology His symptoms are entirely inconsistent with developing SBO. No abdominal pain, no nausea or vomiting. Has had somewhat decreased flatus. Last BM on Sat/Sun and was normal. I have ordered Lidoderm patch to the right flank Etiology of recent frequent spontaneous epistaxis unclear Repeat CT Abd/Pelvis with IV and Oral (gastrograffin contrast), also will obtain CT Chest. Discussed w/ Dr. Andrade at time of consult, will follow along. Addendum 10/24/[address] Andrade findings on CT Chest/Abd/Pelvis. No evidence of SBO or other concerning abdominal findings. Small right pleural effusion. No evidence of acute trauma to the right chest. We discussed the patient's Hep C which is under tx with Dr. Hammer. Will sign off at this point as there are no surgical concerns. Please call with any questions. Requesting Provider: Dr. Jennifer Andrade Date Consult Requested: 10/24/16 Reason for Consult: Evaluation for partial small bowel written obstruction Patient History Reviewed: Yes Admission H&P Reviewed: Yes Consult Result/Summary:: No evidence of bowel obstruction or other general surgery issues at this time. Notified Requestor: Yes Time Spent (in minutes): 65
[2016-10-24] MEDS ORDERED: Iopamidol 612 MG/ML 150 ML Bottle IVPUSH ONE (12:16)
[2016-10-24] MEDS ORDERED: Diatrizoate Meglumine/Diatrizoate Sodium 37% 120 ML Bottle PO ONE (12:16)
[2016-10-24] MEDS: Lidocaine 5% 700 MG Patch TOP SCH (12:17)
--- NOTE | 2016-10-24 13:13 | CT ---
This exam was dictated as part of CT abdomen and pelvis study.
--- NOTE | 2016-10-24 13:13 | CT ---
CT chest Technique: Multiple axial sections through the chest were obtained. Intravenous contrast was utilized. Comparison: Previous chest x-ray of 10/18/16, no previous chest CT is available. Findings: Mediastinum and hilar regions show no adenopathy or mass. No axillary adenopathy is seen. No pericardial thickening is seen. Increased density within the right lung base is seen. This is most likely due to atelectasis although difficult to exclude small area of pneumonia. Atelectasis is also seen within the left lung base. Minimal pleural effusion is noted on the right side. Lungs otherwise are clear. Several small bullae are seen within the right upper lung. Minimal degenerative spurring is noted within the thoracic spine. Old appearing sternal fracture is seen which appears ununited. Impression: 1. Bibasilar atelectasis. Parenchymal density is slightly more prominent within the right base than left lung base and difficult to completely exclude small area of pneumonia although findings more likely due to slightly asymmetric atelectasis. 2. Minimal right sided pleural effusion. 3. Other incidental findings as described above. Diagnostic code #3 CT abdomen and pelvis Technique: Multiple axial sections were obtained from above the dome of the diaphragm inferiorly through the pubic symphysis. Delayed images were obtained through the bladder. Intravenous and oral contrast was utilized. Comparison: Previous noncontrast CT abdomen and pelvis exam performed on 10/23/16. Findings: Liver shows mild fatty infiltration. No focal abnormality is appreciated within the liver. Spleen is within normal limits. Adrenal gland on the left side shows a nodule most likely due to adrenal adenoma. Pancreas is within normal limits. Surgical clips are seen from prior cholecystectomy. Kidneys show symmetric contrast enhancement. Aorta shows atherosclerotic change which continues into the iliac vessels with no findings of aneurysm. No retroperitoneal adenopathy or mesenteric abnormalities are seen. Contrast is noted throughout a large portion of small bowel. Jejunum appears less dilated on current exam than on previous study with nothing identified on current exam to indicate persisting small bowel obstruction. Appendix is normal. No pelvic mass or adenopathy is seen. Delayed images shows contrast within the bladder. Bone window settings were reviewed appears within normal limits for the patient's age. Impression: 1. Less jejunal dilatation when compared to prior exam with contrast seen throughout a large portion of the small bowel. Nothing seen on current exam to indicate persisting small bowel obstruction. 2. Fatty infiltration within the liver and other incidental findings as noted above. Diagnostic code #2
[2016-10-24] MEDS ORDERED: Metoclopramide 10 MG/2 ML SDV IVPUSH PRN (17:35)
[2016-10-24] MEDS: tiZANidine 4 MG Tab PO SCH (17:36)
--- NOTE | 2016-10-24 17:45 | PCM.SN ---
- Free Text/Narrative Note: Patient seen and re-evaluated. He is doing much better. Pain is much more controlled. His repeat CT scan report mentioned no small bowel obstruction. Patient has been doing a lot of heavy lifting. Again, physical exam was benign. No obvious signs of trauma, bruising, skin tears/breaks. However tender on palpation. Will optimize pain medication. Oxycodone ER 10 mg po BID, PRN Pain med Q4H and Zanaflex 8 mg po TID. Norflex is currently on hold. Continue with lidocaine patch. PT/OT consult.
[2016-10-24] MEDS: oxyCODONE ER 10 MG TAB.ER PO SCH (21:09)
[2016-10-25] MEDS: tiZANidine 4 MG Tab PO SCH ×5 (00:52→17:41)
[2016-10-25] MEDS: Sodium Chloride 0.9% 1,000 ML IV SCH ×3 (03:57→17:40)
[2016-10-25] MEDS: HYDROmorphone 1 MG/ML Syringe IVPUSH PRN ×3 (06:16→21:37)
--- NOTE | 2016-10-25 08:03 | CT ---
CT abdomen and pelvis Technique: Multiple axial sections were obtained from above the dome of the diaphragm inferiorly through the pubic symphysis. Intravenous and oral contrast was not utilized. Study has been performed as a ureteral stone protocol. Comparison: No previous abdominal imaging. Findings: Kidneys show no abnormal calcifications. No ureteral dilatation or ureteral stone is seen. Visualized lung bases shows nothing acute. Liver shows mild fatty infiltration. No focal abnormality is appreciated within the liver. Surgical clips are seen from prior cholecystectomy. Spleen appears within normal limits. Right adrenal gland is unremarkable. Nodule identified within the left adrenal gland measuring approximately 1.9 cm which is likely due to incidental adrenal adenoma. Pancreas appears within normal limits. Aorta shows diffuse atherosclerotic change which continues into the iliac vessels. No aneurysm is seen. No retroperitoneal adenopathy is identified. Appendix is seen which is normal. No pelvic mass or adenopathy is seen. Mildly dilated loops of jejunum are noted. Transitional point occurs within the left abdomen near the junction of the jejunum to ileum. Etiology is not identified and findings are most likely due to nonvisualized adhesion. Mild increased stool is noted within the right and transverse colon. Bone window settings were reviewed which appear within normal limits for the patient's age. Impression: 1. Findings felt compatible with mild small bowel obstruction primarily within the jejunum with nonvisualized transition point near the junction of the jejunum and ileum. As mentioned above, etiology is not seen and findings most likely are due to a nonvisualized adhesion. 2. No renal calculi, ureteral dilatation or ureteral stone is seen. 3. Other incidental findings as described above. Diagnostic code #3 Agree with preliminary report issued by [employer] ([employer] preliminary report dictated on 10/24/16, 12:37 AM Central Time)
[2016-10-25] MEDS: Nicotine 21 MG/24 Hr Patch TRDERM SCH (08:23)
[2016-10-25] MEDS: [UNRECOGNIZED DRUG - REMARK] TRDERM SCH (08:24)
[2016-10-25] MEDS: oxyCODONE ER 10 MG TAB.ER PO SCH ×2 (08:24→20:01)
[2016-10-25] MEDS ORDERED: Pneumococcal Polyvalent-23 Vaccine 0.5 ML SDV SUBCUT ONE (09:00)
--- NOTE | 2016-10-25 09:16 | PCM.PN ---
- General Info Date of Service: 10/25/16 Admission Dx/Problem (Free Text): Admission Diagnosis/Problem Admission Diagnosis/Problem Small bowel obstruction Subjective Update: Follow Up Functional Status: Reports: pain controlled, tolerating diet, urinating, new symptoms (watery diarrhea) Pain Score: 6 - Review of Systems General: Denies: Fever, Weakness, Fatigue, Malaise, Chills HEENT: Reports: no symptoms Pulmonary: Denies: shortness of breath Cardiovascular: Denies: Chest Pain, Palpitations, Dyspnea on Exertion, Lightheadedness Gastrointestinal: Reports: Diarrhea, Flatus. Denies: Abdominal pain, Nausea, Vomiting Genitourinary: Reports: no symptoms Musculoskeletal: Reports: back pain, other (flank pain and anterior right sided rib pain) Neurological: Reports: Gait Disturbance. Denies: Confusion, Difficulty Walking , Weakness Psychiatric: Denies: depression, anxiety, agitation, hallucinations Systems Review Comment:: No overnight issues. His pain is much better. He has had diarrhea this am. No issues with current diet level. He has no new complaints. His Mg is at 1.5. - Patient Data Vitals - most recent: Last Vital Signs Temp 37.1 C 10/25/16 08:18 Pulse 66 10/25/16 08:18 Resp 20 10/25/16 08:18 BP 127/79 10/25/16 08:18 Pulse Ox 95 10/25/16 08:18 Weight - most recent: 77.201 kg I&O - last 24 hours: Intake & Output 10/24/16 10/25/16 10/25/16 22:59 06:59 14:59 Intake Total 1480 1760 Output Total 950 2400 Balance 530 -640 Lab Results last 24 hrs: Laboratory Results - last 24 hr 10/25/16 10/25/16 Range/Units 06:05 06:05 WBC 11.50 H (4.23-9.07) K/mm3 RBC 4.39 L (4.63-6.08) M/mm3 Hgb 13.9 (13.7-17.5) gm/L Hct 40.2 (40.1-51.0) % MCV 91.6 (79.0-92.2) fl MCH 31.7 (25.7-32.2) pg MCHC 34.6 (32.2-35.5) g/dl RDW Std Deviation 42.5 (35.1-43.9) fL Plt Count 120 L (163-337) K/mm3 MPV 10.5 (9.4-12.3) fl Neut % (Auto) 70.1 H (34.0-67.9) % Lymph % (Auto) 17.0 L (21.8-53.1) % [place] % (Auto) 11.8 (5.3-12.2) % Eos % (Auto) 0.6 L (0.8-7.0) Baso % (Auto) 0.2 (0.1-1.2) % Neut # (Auto) 8.06 H (1.78-5.38) K/mm3 Lymph # (Auto) 1.96 (1.32-3.57) K/mm3 [place] # (Auto) 1.36 H (0.30-0.82) K/mm3 Eos # (Auto) 0.07 (0.04-0.54) K/mm3 Baso # (Auto) 0.02 (0.01-0.08) K/mm3 Sodium 135 L (136-145) mEq/L Potassium 3.8 (3.5-5.1) mEq/L Chloride 100 (98-107) mEq/L Carbon Dioxide 25 (21-32) mEq/L Anion Gap 13.8 (5-15) BUN 8 (7-18) mg/dL Creatinine 1.0 (0.7-1.3) mg/dL Est Cr Clr Drug Dosing 77.09 mL/min Estimated GFR (MDRD) > 60 (>60) mL/min BUN/Creatinine Ratio 8.0 L (14-18) Glucose 105 (74-106) mg/dL Calcium 8.6 (8.5-10.1) mg/dL Magnesium 1.5 L (1.8-2.4) mg/dl C-Reactive Protein 5.3 H* (<1.0) mg/dL Med Orders - Current: Current Medications Acetaminophen (Tylenol) 650 mg PO Q4H PRN PRN Reason: Pain (Mild 1-3)/fever Albuterol/Ipratropium (Duoneb 3.0-0.5 Mg/3 Ml) 3 ml NEB Q4H PRN PRN Reason: Shortness Of Breath/wheezing Bisacodyl (Dulcolax) 5 mg PO DAILY PRN PRN Reason: Constipation Hydralazine HCl (Apresoline) 20 mg IVPUSH Q4H PRN PRN Reason: Hypertension Hydromorphone HCl (Dilaudid) 1 mg IVPUSH Q4H PRN PRN Reason: Pain (severe 7-10) Last Admin: 10/25/16 06:16 Dose: 1 mg Sodium Chloride (Normal Saline) 1,000 mls @ 150 mls/hr IV ASDIRECTED [facility] Last Admin: 10/25/16 03:57 Dose: 150 mls/hr Promethazine HCl 12.5 mg/ (Sodium Chloride) 50.5 mls @ 100 mls/hr IV Q6H PRN PRN Reason: Nausea/Vomiting Lidocaine (Lidoderm 5%) 700 mg TOP Q24H [facility] Last Admin: 10/24/16 12:17 Dose: 700 mg Lorazepam (Ativan) 1 mg IV Q6H PRN PRN Reason: Anxiety Magnesium Sulfate (Pharmacy To Dose - Magnesium Replacement) 0 dose .XX ASDIRECTED PRN PRN Reason: RX TO MONITOR MAG LEVELS Metoclopramide HCl (Reglan) 10 mg IVPUSH Q6H PRN PRN Reason: Other Metoprolol Tartrate (Lopressor) 5 mg IVPUSH Q4H PRN PRN Reason: Tachycardia Miscellaneous Information (Remove Patch) 1 ea TRDERM DAILY [facility] Last Admin: 10/25/16 08:24 Dose: 1 ea Miscellaneous Information (Remove Patch) 1 ea TRDERM Q72H [facility] Stop: 10/27/16 07:16 Miscellaneous Information (Remove Patch) 0 ea TRDERM Q24H [facility] Last Admin: 10/24/16 23:25 Dose: 1 ea Nicotine (Habitrol) 21 mg TRDERM DAILY [facility] Last Admin: 10/25/16 08:23 Dose: 21 mg Ondansetron HCl (Zofran) 4 mg IV Q6H PRN PRN Reason: Nausea/Vomiting Oxycodone HCl (Oxycontin) 10 mg PO Q12HR [facility] Last Admin: 10/25/16 08:24 Dose: 10 mg Polyethylene Glycol (Miralax) 17 gm PO DAILY PRN PRN Reason: Constipation Potassium Chloride (Pharmacy To Dose - Potassium Replacement) 0 dose .XX ASDIRECTED PRN PRN Reason: RX TO MONITOR K LEVELS Senna/Docusate Sodium (Senna Plus) 1 tab PO BID PRN PRN Reason: Constipation Last Admin: 10/24/16 08:45 Dose: 1 tab Sodium Chloride (Saline Flush) 10 ml FLUSH ASDIRECTED PRN PRN Reason: Keep Vein Open Last Admin: 10/23/16 22:37 Dose: 10 ml Temazepam (Restoril) 15 mg PO BEDTIME PRN PRN Reason: Sleep Tizanidine HCl (Zanaflex) 4 mg PO Q8H [facility] Last Admin: 10/25/16 02:07 Dose: Not Given Discontinued Medications Diatrizoate Meglum/Diatrizoate Sod (Gastrografin 37%) 90 ml PO ONETIME ONE Stop: 10/24/16 12:17 Last Admin: 10/24/16 12:35 Dose: 90 ml Enoxaparin Sodium (Lovenox) 40 mg SUBCUT DAILY [facility] Last Admin: 10/24/16 08:45 Dose: 40 mg Hydromorphone HCl (Dilaudid) 1 mg IVPUSH ONETIME ONE Stop: 10/23/16 22:25 Last Admin: 10/23/16 22:38 Dose: 1 mg Hydromorphone HCl (Dilaudid) 0.5 mg IVPUSH ONETIME ONE Stop: 10/23/16 23:45 Last Admin: 10/23/16 23:52 Dose: 0.5 mg Hydromorphone HCl (Dilaudid) 0.5 mg IVPUSH Q1H PRN PRN Reason: Pain Last Admin: 10/24/16 05:20 Dose: 0.5 mg Sodium Chloride (Normal Saline) 1,000 mls @ 125 mls/hr IV ASDIRECTED [facility] Last Admin: 10/23/16 22:37 Dose: 125 mls/hr Dextrose/Sodium Chloride (Dextrose 5%-Normal Saline) 1,000 mls @ 125 mls/hr IV ASDIRECTED [facility] Last Admin: 10/24/16 11:55 Dose: 125 mls/hr Iopamidol (Isovue-300 (61%)) 125 ml IVPUSH ONETIME ONE Stop: 10/24/16 12:17 Last Admin: 10/24/16 12:35 Dose: 125 ml Metoclopramide HCl (Reglan) 10 mg IVPUSH Q6H [facility] Last Admin: 10/24/16 13:08 Dose: 10 mg Ondansetron HCl (Zofran) 4 mg IVPUSH ONETIME ONE Stop: 10/23/16 22:23 Last Admin: 10/23/16 22:36 Dose: 4 mg Ondansetron HCl (Zofran) 4 mg IVPUSH Q6H PRN PRN Reason: Nausea Pneumococcal Polyvalent Vaccine (Pneumovax 23) 0.5 ml SUBCUT .ONCE ONE Stop: 10/25/16 09:01 Scopolamine (Transderm-Scop) 1.5 mg TOP ONETIME ONE Stop: 10/24/16 07:03 Last Admin: 10/24/16 08:46 Dose: 1.5 mg - Exam General: alert, oriented, cooperative, no acute distress HEENT: Pupils equal, Pupils reactive, EOMI, Mucous membr. moist/pink Neck: supple, trachea midline, no JVD Lungs: Normal respiratory effort, Decreased breath sounds Cardiovascular: Regular Rate, Regular Rhythm Abdomen: bowel sounds present, soft, no tenderness, no distension (Male) Exam: Deferred Back Exam: Normal Inspection, Decreased Range of Motion, Other (right flank/ back tenderness ) Extremities: no edema, normal pulses, no tenderness/swelling, no clubbing, no cyanosis, no calf tenderness Peripheral Pulses: 2+: Posterior Tibial (L), Posterior Tibial (R), Dorsalis Pedis (L), Dorsalis Pedis (R) Skin: warm, dry, intact Neurological: no new focal deficit Psy/Mental Status: alert, normal affect, normal mood Physical Findings Comments:: Difficulty getting up - Problem List Review Problem List Initiated/Reviewed/Updated: Yes - My Orders Last 24 Hours: My Active Orders 10/24/16 09:00 Nicotine [Habitrol] 21 mg TRDERM DAILY 10/24/16 10:54 Consult to Physician [CONS] Routine 10/24/16 10:55 Notify Provider Consults [RC] ASDIRECTED 10/24/16 17:35 Metoclopramide [Reglan] 10 mg IVPUSH Q6H PRN 10/24/16 17:49 Antiembolic Devices [RC] QSHIFT SCD [Sequential Compression Device] [OM.PC] Routine 10/24/16 18:00 tiZANidine [Zanaflex] 4 mg PO Q8H 10/24/16 19:20 Communication Order [RC] DAILY 10/24/16 21:00 oxyCODONE ER [OxyCONTIN] 10 mg PO Q12HR 10/24/16 Dinner Clear Liquid Diet [DIET] 10/25/16 09:00 Remove Patch 1 ea TRDERM DAILY 10/26/16 05:11 BASIC METABOLIC PANEL,BMP [CHEM] AM C-REACTIVE PROTEIN [CHEM] AM CBC WITH AUTO DIFF [HEME] AM MAGNESIUM [CHEM] AM 10/27/16 05:11 BASIC METABOLIC PANEL,BMP [CHEM] AM C-REACTIVE PROTEIN [CHEM] AM CBC WITH AUTO DIFF [HEME] AM MAGNESIUM [CHEM] AM 10/27/16 07:15 Remove Patch 1 ea TRDERM Q72H - Plan Plan:: Assessment/Plan: Acute: Right Flank/Back Pain, Pain is better - MSK in etiology - Risk factor: lifts heavy things - Pain localized to his flank and goes up to his back - No obvious signs of trauma - Tender on Palpation - CT scan: no acute abnormal findings Muscle Spasm, Improved - Zanaflex TID will d/c Norflex - Continue PT/OT Bibasilar Atelectasis with Minimal Right Sided Pleural Effusion - He is not taking deep breaths - Incentive Spirometry Q1 HR - Levaquin 750 mg IV daily if C. Diff negative Diarrhea - R/o C. Diff - Supportive care - On clear liquids Hypomagnesemia - Mg 1.5 - Pharmacy to replete and monitor No SBO - 2/2 adhesions involving jejunal ileal junction - Has hx/o Cholecystectomy - Consulted Dr. Leung for further input Chronic: Hep C Infection, on current treatment Thrombocyopenia, Stable at 120 Nicotine Dependence Plan: He is clinically stable Continue current treatment Routine AM Labs Advance diet as tolerated Continue PT/OT Ambulated QID Additional orders as above SW/CM for d/c planning
[2016-10-25] MEDS: Lidocaine 5% 700 MG Patch TOP SCH (10:10)
[2016-10-25] MEDS ORDERED: Magnesium Sulfate/Water 2 GM in Premix Bag 1 BAG IV ONE (13:00)
[2016-10-25] MEDS: Levofloxacin/Dextrose 5%-Water 750 MG in Premix Bag 1 BAG IV SCH (16:32)
[2016-10-26] MEDS: Sodium Chloride 0.9% 1,000 ML IV SCH (00:19)
[2016-10-26] MEDS: tiZANidine 4 MG Tab PO SCH ×3 (01:02→18:15)
[2016-10-26] MEDS: HYDROmorphone 1 MG/ML Syringe IVPUSH PRN (06:54)
[2016-10-26] MEDS: Nicotine 21 MG/24 Hr Patch TRDERM SCH (08:49)
[2016-10-26] MEDS: oxyCODONE ER 10 MG TAB.ER PO SCH ×2 (08:51→20:19)
[2016-10-26] MEDS: [UNRECOGNIZED DRUG - REMARK] TRDERM SCH (10:04)
[2016-10-26] MEDS: Levofloxacin/Dextrose 5%-Water 750 MG in Premix Bag 1 BAG IV SCH (10:10)
[2016-10-26] MEDS: Lidocaine 5% 700 MG Patch TOP SCH (10:11)
[2016-10-26] MEDS ORDERED: Acetaminophen/oxyCODONE 325-5 MG Tab PO PRN (11:52)
--- NOTE | 2016-10-26 12:09 | PCM.PN ---
- General Info Date of Service: 10/26/16 Admission Dx/Problem (Free Text): Admission Diagnosis/Problem Admission Diagnosis/Problem Small bowel obstruction Functional Status: Reports: tolerating diet, ambulating, urinating. Denies: pain controlled - Review of Systems General: Reports: Fatigue. Denies: Fever HEENT: Reports: no symptoms Pulmonary: Reports: no symptoms. Denies: shortness of breath, pleuritic chest pain, cough Cardiovascular: Reports: No Symptoms Gastrointestinal: Reports: Abdominal pain (RUQ), Diarrhea. Denies: Constipation , Decreased appetite, Hematochezia, Melena, Nausea, Vomiting Genitourinary: Reports: no symptoms, frequency. Denies: dysuria, urgency Musculoskeletal: Reports: other (pain to right flank/rib area) Skin: Reports: no symptoms Neurological: Reports: No Symptoms Psychiatric: Reports: no symptoms - Patient Data Vitals - most recent: Last Vital Signs Temp 99.0 F 10/26/16 07:44 Pulse 63 10/26/16 07:44 Resp 16 10/26/16 07:44 BP 130/75 10/26/16 07:44 Pulse Ox 96 10/26/16 07:44 Weight - most recent: 170 lb 3.2 oz I&O - last 24 hours: Intake & Output 10/25/16 10/26/16 10/26/16 22:59 06:59 14:59 Intake Total 3824 3357 648 Output Total 2300 2750 Balance 1524 607 648 Lab Results last 24 hrs: Laboratory Results - last 24 hr 10/25/16 10/26/16 10/26/16 Range/Units 12:55 05:56 05:56 WBC 7.77 (4.23-9.07) K/mm3 RBC 4.37 L (4.63-6.08) M/mm3 Hgb 13.8 (13.7-17.5) gm/L Hct 39.9 L (40.1-51.0) % MCV 91.3 (79.0-92.2) fl MCH 31.6 (25.7-32.2) pg MCHC 34.6 (32.2-35.5) g/dl RDW Std Deviation 41.5 (35.1-43.9) fL Plt Count 112 L (163-337) K/mm3 MPV 10.8 (9.4-12.3) fl Neut % (Auto) 68.9 H (34.0-67.9) % Lymph % (Auto) 17.1 L (21.8-53.1) % [place] % (Auto) 11.5 (5.3-12.2) % Eos % (Auto) 1.8 (0.8-7.0) Baso % (Auto) 0.3 (0.1-1.2) % Neut # (Auto) 5.36 (1.78-5.38) K/mm3 Lymph # (Auto) 1.33 (1.32-3.57) K/mm3 [place] # (Auto) 0.89 H (0.30-0.82) K/mm3 Eos # (Auto) 0.14 (0.04-0.54) K/mm3 Baso # (Auto) 0.02 (0.01-0.08) K/mm3 Sodium 135 L (136-145) mEq/L Potassium 4.0 (3.5-5.1) mEq/L Chloride 103 (98-107) mEq/L Carbon Dioxide 22 (21-32) mEq/L Anion Gap 14.0 (5-15) BUN 9 (7-18) mg/dL Creatinine 1.0 (0.7-1.3) mg/dL Est Cr Clr Drug Dosing 77.09 mL/min Estimated GFR (MDRD) > 60 (>60) mL/min BUN/Creatinine Ratio 9.0 L (14-18) Glucose 92 (74-106) mg/dL Calcium 8.7 (8.5-10.1) mg/dL Magnesium 1.9 (1.8-2.4) mg/dl C-Reactive Protein 4.5 H* (<1.0) mg/dL C.difficile [id number] Presumptive negative C. difficile Tox (PCR) Negative Med Orders - Current: Current Medications Acetaminophen (Tylenol) 650 mg PO Q4H PRN PRN Reason: Pain (Mild 1-3)/fever Albuterol/Ipratropium (Duoneb 3.0-0.5 Mg/3 Ml) 3 ml NEB Q4H PRN PRN Reason: Shortness Of Breath/wheezing Bisacodyl (Dulcolax) 5 mg PO DAILY PRN PRN Reason: Constipation Hydralazine HCl (Apresoline) 20 mg IVPUSH Q4H PRN PRN Reason: Hypertension Levofloxacin/Dextrose 750 mg/ (Premix) 150 mls @ 100 mls/hr IV Q24H [facility] Last Admin: 10/26/16 10:10 Dose: 100 mls/hr Ketorolac Tromethamine (Toradol) 30 mg IVPUSH Q6H [facility] Lidocaine (Lidoderm 5%) 700 mg TOP Q24H [facility] Last Admin: 10/26/16 10:11 Dose: 700 mg Magnesium Sulfate (Pharmacy To Dose - Magnesium Replacement) 0 dose .XX ASDIRECTED PRN PRN Reason: RX TO MONITOR MAG LEVELS Metoclopramide HCl (Reglan) 10 mg IVPUSH Q6H PRN PRN Reason: Other Metoprolol Tartrate (Lopressor) 5 mg IVPUSH Q4H PRN PRN Reason: Tachycardia Metronidazole (Flagyl) 500 mg PO Q8H [facility] Miscellaneous Information (Remove Patch) 1 ea TRDERM DAILY [facility] Last Admin: 10/26/16 10:04 Dose: 1 ea Miscellaneous Information (Remove Patch) 1 ea TRDERM Q72H [facility] Stop: 10/27/16 07:16 Miscellaneous Information (Remove Patch) 0 ea TRDERM Q24H [facility] Last Admin: 10/25/16 22:15 Dose: 1 ea Nicotine (Habitrol) 21 mg TRDERM DAILY [facility] Last Admin: 10/26/16 08:49 Dose: 21 mg Ondansetron HCl (Zofran) 4 mg IV Q6H PRN PRN Reason: Nausea/Vomiting Oxycodone HCl (Oxycontin) 10 mg PO Q12HR [facility] Last Admin: 10/26/16 08:51 Dose: 10 mg Oxycodone/Acetaminophen (Percocet 325-5 Mg) 1 tab PO Q4H PRN PRN Reason: break through pain Polyethylene Glycol (Miralax) 17 gm PO DAILY PRN PRN Reason: Constipation Potassium Chloride (Pharmacy To Dose - Potassium Replacement) 0 dose .XX ASDIRECTED PRN PRN Reason: RX TO MONITOR K LEVELS Saccharomyces Boulardii (Florastor) 250 mg PO BID [facility] Senna/Docusate Sodium (Senna Plus) 1 tab PO BID PRN PRN Reason: Constipation Last Admin: 10/24/16 08:45 Dose: 1 tab Sodium Chloride (Saline Flush) 10 ml FLUSH ASDIRECTED PRN PRN Reason: Keep Vein Open Last Admin: 10/23/16 22:37 Dose: 10 ml Temazepam (Restoril) 15 mg PO BEDTIME PRN PRN Reason: Sleep Tizanidine HCl (Zanaflex) 4 mg PO Q8H [facility] Last Admin: 10/26/16 10:05 Dose: 4 mg Discontinued Medications Diatrizoate Meglum/Diatrizoate Sod (Gastrografin 37%) 90 ml PO ONETIME ONE Stop: 10/24/16 12:17 Last Admin: 10/24/16 12:35 Dose: 90 ml Enoxaparin Sodium (Lovenox) 40 mg SUBCUT DAILY [facility] Last Admin: 10/24/16 08:45 Dose: 40 mg Hydromorphone HCl (Dilaudid) 1 mg IVPUSH ONETIME ONE Stop: 10/23/16 22:25 Last Admin: 10/23/16 22:38 Dose: 1 mg Hydromorphone HCl (Dilaudid) 0.5 mg IVPUSH ONETIME ONE Stop: 10/23/16 23:45 Last Admin: 10/23/16 23:52 Dose: 0.5 mg Hydromorphone HCl (Dilaudid) 0.5 mg IVPUSH Q1H PRN PRN Reason: Pain Last Admin: 10/24/16 05:20 Dose: 0.5 mg Hydromorphone HCl (Dilaudid) 1 mg IVPUSH Q4H PRN PRN Reason: Pain (severe 7-10) Last Admin: 10/26/16 06:54 Dose: 0.5 mg Sodium Chloride (Normal Saline) 1,000 mls @ 125 mls/hr IV ASDIRECTED [facility] Last Admin: 10/23/16 22:37 Dose: 125 mls/hr Sodium Chloride (Normal Saline) 1,000 mls @ 150 mls/hr IV ASDIRECTED [facility] Last Admin: 10/26/16 00:19 Dose: 150 mls/hr Promethazine HCl 12.5 mg/ (Sodium Chloride) 50.5 mls @ 100 mls/hr IV Q6H PRN PRN Reason: Nausea/Vomiting Dextrose/Sodium Chloride (Dextrose 5%-Normal Saline) 1,000 mls @ 125 mls/hr IV ASDIRECTED [facility] Last Admin: 10/24/16 11:55 Dose: 125 mls/hr Magnesium Sulfate 2 gm/ Premix 50 mls @ 25 mls/hr IV ONETIME ONE Stop: 10/25/16 14:59 Last Admin: 10/25/16 13:18 Dose: 25 mls/hr Iopamidol (Isovue-300 (61%)) 125 ml IVPUSH ONETIME ONE Stop: 10/24/16 12:17 Last Admin: 10/24/16 12:35 Dose: 125 ml Lorazepam (Ativan) 1 mg IV Q6H PRN PRN Reason: Anxiety Metoclopramide HCl (Reglan) 10 mg IVPUSH Q6H [facility] Last Admin: 10/24/16 13:08 Dose: 10 mg Ondansetron HCl (Zofran) 4 mg IVPUSH ONETIME ONE Stop: 10/23/16 22:23 Last Admin: 10/23/16 22:36 Dose: 4 mg Ondansetron HCl (Zofran) 4 mg IVPUSH Q6H PRN PRN Reason: Nausea Pneumococcal Polyvalent Vaccine (Pneumovax 23) 0.5 ml SUBCUT .ONCE ONE Stop: 10/25/16 09:01 Scopolamine (Transderm-Scop) 1.5 mg TOP ONETIME ONE Stop: 10/24/16 07:03 Last Admin: 10/24/16 08:46 Dose: 1.5 mg - Exam Quality Assessment: DVT prophylaxis General: alert, oriented, cooperative, no acute distress HEENT: Pupils equal, Pupils reactive, EOMI, Mucous membr. moist/pink Neck: supple Lungs: Clear to auscultation, Normal respiratory effort, Decreased breath sounds (bases bilat rt>lt) Cardiovascular: Regular Rate, Regular Rhythm Abdomen: bowel sounds present, soft, no distension, tenderness (RUQ). No: rigidity, rebound, guarding, distension, organomegaly (Male) Exam: Deferred Back Exam: Normal Inspection Extremities: no edema, no calf tenderness Skin: warm, dry, intact Neurological: no new focal deficit Psy/Mental Status: alert, normal affect, normal mood Physical Findings Comments:: Palpation of right lower chest wall/ribs is tender with palpation and with any movement in general. - Problem List & Annotations (1) Right-sided chest wall pain SNOMED Code(s): 707552573 Code(s): R07.89 - OTHER CHEST PAIN Status: Acute Priority: High Current Visit: Yes (2) Right flank pain SNOMED Code(s): 264412665 Code(s): R10.9 - UNSPECIFIED ABDOMINAL PAIN Status: Acute Priority: High Current Visit: Yes (3) Small bowel obstruction SNOMED Code(s): 336950992 Code(s): K56.69 - OTHER INTESTINAL OBSTRUCTION Status: Resolved Priority : High Current Visit: Yes (4) Epistaxis not due to trauma SNOMED Code(s): 86756022 Code(s): R04.0 - EPISTAXIS Status: Resolved Priority: Medium Current Visit: Yes (5) Hepatitis C SNOMED Code(s): 29182120 Code(s): B19.20 - UNSPECIFIED VIRAL HEPATITIS C WITHOUT HEPATIC COMA Status : Chronic Priority: Medium Current Visit: No Qualifiers: Viral hepatitis chronicity: chronic Hepatic coma status: without hepatic coma Qualified Code(s): B18.2 - Chronic viral hepatitis C - Problem List Review Problem List Initiated/Reviewed/Updated: Yes - My Orders Last 24 Hours: My Active Orders 10/26/16 05:56 HEPATIC FUNCTION PANEL,HFP [CHEM] Routine 10/26/16 11:50 UA W/MICROSCOPIC [URIN] Routine 10/26/16 11:52 Acetaminophen/oxyCODONE [Percocet 325-5 MG] 1 tab PO Q4H PRN 10/26/16 11:57 GAMMA GLUTAMYL TRANSFERASE,GGT [CHEM] Routine 10/26/16 12:00 Ketorolac [Toradol] 30 mg IVPUSH Q6H Saccharomyces Boulardii [Florastor] 250 mg PO BID metroNIDAZOLE [Flagyl] 500 mg PO Q8H 10/26/16 Lunch Soft Diet [DIET] - Plan Plan:: Assessment/Plan: Acute: Right Flank/chest wall/Back Pain, Pain is better - MSK in etiology--most severe with any movements - Risk factor: lifts heavy things- works at a [employer] - Pain localized to his right lower chest/ribs today, pain with palpation - No obvious signs of trauma; denies hx of trauma - CT scan: no acute abnormal findings - Will add toradol IV Q6 hrs, start PO percocet in addition to long acting narcotic, DC dilaudid IVP for now. - Recheck UA for hematuria but denies urinary symptoms (r/o renal stones); LFT and GGT recheck today as well. Muscle Spasm as above- rt flank/chest wall, Improved - Zanaflex TID will d/c Norflex - Continue PT/OT - Lidocaine patch with minimal relief Bibasilar Atelectasis with Minimal Right Sided Pleural Effusion - He is not taking deep breaths - Incentive Spirometry Q1 HR - Levaquin 750 mg IV daily if C. Diff negative Diarrhea--continues - R/o C. Diff--all stool studies and c.diff negative - Supportive care - On clear liquids--advanced to soft diet - Add metronidazole and probiotic Hypomagnesemia - Mg 1.5--improved - Pharmacy to replete and monitor No SBO - 2/2 adhesions involving jejunal ileal junction - Has hx/o Cholecystectomy years ago - Consulted Dr. Leung for further input--also agrees, does not clinically appear to be SBO, repeat abd/pelvis CT negative for SBO Chronic: Hep C Infection, on current treatment Thrombocyopenia, Stable at 120 Nicotine Dependence-nicotine patch Plan: He is clinically stable Continue current treatment Routine AM Labs Advance diet as tolerated Continue PT/OT Ambulated QID DVT/GI prophylax Additional orders as above SW/CM for d/c planning--likely discharge home tomorrow Patient is Full Code
[2016-10-26] MEDS: Ketorolac 30 MG/ML SDV IVPUSH SCH ×3 (12:44→23:41)
[2016-10-26] MEDS: Saccharomyces Boulardii (Probiotic) 250 MG Cap PO SCH ×2 (12:44→20:19)
[2016-10-26] MEDS: metroNIDAZOLE 500 MG Tab PO SCH ×2 (12:45→20:19)
[2016-10-27] MEDS: tiZANidine 4 MG Tab PO SCH ×2 (02:57→09:32)
[2016-10-27] MEDS: metroNIDAZOLE 500 MG Tab PO SCH ×2 (03:01→11:01)
[2016-10-27] MEDS: Ketorolac 30 MG/ML SDV IVPUSH SCH (06:20)
--- NOTE | 2016-10-27 08:47 | PCM.DCSUM1 ---
Discharge Summary - Hospital Course Free Text/Narrative:: This is a 55-year-old fairly healthy white male with no significant past medical history except for hepatitis C infection currently on medical treatment , and society and depression who comes in the [facility] to the emergency department with complaint of right-sided flank pain with radiation to the front. His symptom started a few days ago. Patient denies any trauma or unusual activity. He does carry or lift heavy things. He denies any other symptoms. No GI/ symptoms. Patient denies any recent abdominal surgery. He had his gallbladder taken out years ago. His symptom is exacerbated by movements. His initial workup in emergency department shows a CBC remarkable for WBC of 10.44, RBC of 4.59, platelet of 132, neutrophil counts of 6.47, and monophil counts of 1.25. Hs d- dimer is 0.28. His chemistry is remarkable for anion gap of 17.9, BUN of 23, glucose of 139, AST of 88, and ALT of 100. UA is unremarkable for UTI. His abdominal CT scan V-rad report reads early evidence of small bowel obstruction likely from adhesions involving the jejunal-ileal junction region. Patient was admitted for a small bowel structure and and right flank plain. Dr. Leung was consulted for surgical opinion. Repeat CT scan was obtained per Dr. Leung with resolution of SBO. He continued to have loose stool and RUQ and chest wall pain. 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 Pain control was with oxydodone, IV dilaudid initially, transitioned to toradol which he stated worked the best. He was on levaquin, flagyl was added and probiotic. He is up and ambulating in the hallways, loose stool resolving, pain improving. He will be discharged home today. - Discharge Data Discharge Date: 10/27/16 (admit date 10/24/16) Discharge Disposition: Home, Self-Care 01 Condition: Good - Discharge Diagnosis/Problem(s) (1) Right-sided chest wall pain SNOMED Code(s): 466456982 ICD Code: R07.89 - OTHER CHEST PAIN Status: Acute Priority: High Current Visit: Yes (2) Right flank pain SNOMED Code(s): 418620284 ICD Code: R10.9 - UNSPECIFIED ABDOMINAL PAIN Status: Acute Priority: High Current Visit: Yes (3) Small bowel obstruction SNOMED Code(s): 285584399 ICD Code: K56.69 - OTHER INTESTINAL OBSTRUCTION Status: Resolved Priority : High Current Visit: Yes (4) Epistaxis not due to trauma SNOMED Code(s): 39410681 ICD Code: R04.0 - EPISTAXIS Status: Resolved Priority: Medium Current Visit: Yes (5) Hepatitis C SNOMED Code(s): 94320525 ICD Code: B19.20 - UNSPECIFIED VIRAL HEPATITIS C WITHOUT HEPATIC COMA Status: Chronic Priority: Medium Current Visit: No Qualifiers: Viral hepatitis chronicity: chronic Hepatic coma status: without hepatic coma Qualified Code(s): B18.2 - Chronic viral hepatitis C - Patient Summary/Data Operative Procedure(s) Performed: None Complications: None Consults: Consultations 10/24/16 06:59 Consult to Case Management [CONS] Routine Consult to [employer] [CONS] Routine Consult to Spiritual Care [CONS] Routine 10/24/16 10:54 Consult to Physician [CONS] Routine Labs Pending at D/C: None Recommended Follow-up Testing/Procedures: Follow up with PCP within one week of discharge. Return to work on 10/30/16 Planned Operative Procedure(s) after DC: None Hospital Course: As above - Patient Instructions Diet: Usual Diet as Tolerated Activity: As Tolerated (No work until Sunday10/30/16) Driving: May Drive Today (caution with driving, recommend do not drive while taking narcotic pain medications) Showering/Bathing: May Shower Notify Provider of: Fever, Increased Pain, Nausea and/or Vomiting - Discharge Plan Prescriptions/Med Rec: Acetaminophen/oxyCODONE [Percocet 325-5 MG] 1 tab PO Q4H PRN #20 tablet PRN Reason: Pain Nicotine [Habitrol] 21 mg TRDERM DAILY #30 patch Home Medications: Home Meds oxyCODONE HCl/Acetaminophen [Percocet 5-325 mg Tablet] 1 - 2 each PO Q6HR PRN # 20 tablet 06/13/16 [Rx] Ibuprofen 800 mg PO TID #30 tablet 10/18/16 [Rx] Orphenadrine [Norflex] 100 mg PO BID #20 tab.er 10/18/16 [Rx] Acetaminophen/oxyCODONE [Percocet 325-5 MG] 1 tab PO Q4H PRN #20 tablet [Rx] Nicotine [Habitrol] 21 mg TRDERM DAILY #30 patch 10/27/16 [Rx] Patient Handouts: Smoking Cessation, Tips for Success, [id number], Musculoskeletal Pain Forms: ED Department Discharge Referrals: PCP,Unknown [Primary Care Provider] - - Discharge Summary/Plan Comment DC Time >30 min.: Yes (40 min) - Patient Data Vitals - Most Recent: Last Vital Signs Temp 97.5 F 10/27/16 08:15 Pulse 49 L 10/27/16 08:15 Resp 16 10/27/16 08:15 BP 132/74 10/27/16 08:15 Pulse Ox 97 10/27/16 08:15 Weight - Most Recent: 162 lb 12.8 oz I&O - Last 24 hours: Intake & Output 10/26/16 10/27/16 10/27/16 22:59 06:59 14:59 Intake Total 390 610 Output Total 1050 Balance 390 -440 Lab Results - Last 24 hrs: Laboratory Results - last 24 hr 10/26/16 10/26/16 10/26/16 Range/Units 05:56 05:56 11:26 WBC (4.23-9.07) K/mm3 RBC (4.63-6.08) M/mm3 Hgb (13.7-17.5) gm/L Hct (40.1-51.0) % MCV (79.0-92.2) fl MCH (25.7-32.2) pg MCHC (32.2-35.5) g/dl RDW Std Deviation (35.1-43.9) fL Plt Count (163-337) K/mm3 MPV (9.4-12.3) fl Neut % (Auto) (34.0-67.9) % Lymph % (Auto) (21.8-53.1) % [place] % (Auto) (5.3-12.2) % Eos % (Auto) (0.8-7.0) Baso % (Auto) (0.1-1.2) % Neut # (Auto) (1.78-5.38) K/mm3 Lymph # (Auto) (1.32-3.57) K/mm3 [place] # (Auto) (0.30-0.82) K/mm3 Eos # (Auto) (0.04-0.54) K/mm3 Baso # (Auto) (0.01-0.08) K/mm3 Sodium (136-145) mEq/L Potassium (3.5-5.1) mEq/L Chloride (98-107) mEq/L Carbon Dioxide (21-32) mEq/L Anion Gap (5-15) BUN (7-18) mg/dL Creatinine (0.7-1.3) mg/dL Est Cr Clr Drug Dosing mL/min Estimated GFR (MDRD) (>60) mL/min BUN/Creatinine Ratio (14-18) Glucose (74-106) mg/dL Calcium (8.5-10.1) mg/dL Magnesium (1.8-2.4) mg/dl Total Bilirubin 1.3 H (0.2-1.0) mg/dL Direct Bilirubin 0.40 H (0.0-0.2) mg/dl Indirect Bilirubin 0.90 GGT 198 H (15-85) U/L AST 62 H (15-37) U/L ALT 79 H (16-63) U/L Alkaline Phosphatase 31 L (46-116) U/L C-Reactive Protein (<1.0) mg/dL Total Protein 7.2 (6.4-8.2) g/dl Albumin 3.1 L (3.4-5.0) g/dl Globulin 4.1 gm/dL Albumin/Globulin Ratio 0.8 L (1-2) Urine Color Yellow (Yellow) Urine Appearance Clear (Clear) Urine pH 7.0 (5.0-8.0) Ur Specific [place] 1.015 (1.005-1.030) Urine Protein Negative (Negative) Urine Glucose (UA) Negative (Negative) Urine Ketones Negative (Negative) Urine Occult Blood Negative (Negative) Urine Nitrite Negative (Negative) Urine Bilirubin Negative (Negative) Urine Urobilinogen 4.0 H (0.2-1.0) Ur Leukocyte Esterase Negative (Negative) Urine RBC Not seen (0-5) /hpf Urine WBC 0-5 (0-5) /hpf Ur Epithelial Cells 0-5 (0-5) /hpf Urine Bacteria Few (FEW) /hpf Urine Mucus Not seen (FEW) /hpf 07/07/17 07/07/17 Range/Units 05:29 05:29 WBC 7.07 (4.23-9.07) K/mm3 RBC 4.22 L (4.63-6.08) M/mm3 Hgb 13.4 L (13.7-17.5) gm/L Hct 38.0 L (40.1-51.0) % MCV 90.0 (79.0-92.2) fl MCH 31.8 (25.7-32.2) pg MCHC 35.3 (32.2-35.5) g/dl RDW Std Deviation 40.3 (35.1-43.9) fL Plt Count 121 L (163-337) K/mm3 MPV 11.0 (9.4-12.3) fl Neut % (Auto) 58.0 (34.0-67.9) % Lymph % (Auto) 23.3 (21.8-53.1) % [place] % (Auto) 12.9 H (5.3-12.2) % Eos % (Auto) 4.5 (0.8-7.0) Baso % (Auto) 0.6 (0.1-1.2) % Neut # (Auto) 4.10 (1.78-5.38) K/mm3 Lymph # (Auto) 1.65 (1.32-3.57) K/mm3 [place] # (Auto) 0.91 H (0.30-0.82) K/mm3 Eos # (Auto) 0.32 (0.04-0.54) K/mm3 Baso # (Auto) 0.04 (0.01-0.08) K/mm3 Sodium 138 (136-145) mEq/L Potassium 4.0 (3.5-5.1) mEq/L Chloride 103 (98-107) mEq/L Carbon Dioxide 24 (21-32) mEq/L Anion Gap 15.0 (5-15) BUN 15 (7-18) mg/dL Creatinine 1.1 (0.7-1.3) mg/dL Est Cr Clr Drug Dosing 70.08 mL/min Estimated GFR (MDRD) > 60 (>60) mL/min BUN/Creatinine Ratio 13.6 L (14-18) Glucose 104 (74-106) mg/dL Calcium 8.5 (8.5-10.1) mg/dL Magnesium 1.8 (1.8-2.4) mg/dl Total Bilirubin (0.2-1.0) mg/dL Direct Bilirubin (0.0-0.2) mg/dl Indirect Bilirubin GGT (15-85) U/L AST (15-37) U/L ALT (16-63) U/L Alkaline Phosphatase (46-116) U/L C-Reactive Protein 2.7 H* (<1.0) mg/dL Total Protein (6.4-8.2) g/dl Albumin (3.4-5.0) g/dl Globulin gm/dL Albumin/Globulin Ratio (1-2) Urine Color (Yellow) Urine Appearance (Clear) Urine pH (5.0-8.0) Ur Specific [place] (1.005-1.030) Urine Protein (Negative) Urine Glucose (UA) (Negative) Urine Ketones (Negative) Urine Occult Blood (Negative) Urine Nitrite (Negative) Urine Bilirubin (Negative) Urine Urobilinogen (0.2-1.0) Ur Leukocyte Esterase (Negative) Urine RBC (0-5) /hpf Urine WBC (0-5) /hpf Ur Epithelial Cells (0-5) /hpf Urine Bacteria (FEW) /hpf Urine Mucus (FEW) /hpf Med Orders - Current: Current Medications Acetaminophen (Tylenol) 650 mg PO Q4H PRN PRN Reason: Pain (Mild 1-3)/fever Albuterol/Ipratropium (Duoneb 3.0-0.5 Mg/3 Ml) 3 ml NEB Q4H PRN PRN Reason: Shortness Of Breath/wheezing Bisacodyl (Dulcolax) 5 mg PO DAILY PRN PRN Reason: Constipation Hydralazine HCl (Apresoline) 20 mg IVPUSH Q4H PRN PRN Reason: Hypertension Levofloxacin/Dextrose 750 mg/ (Premix) 150 mls @ 100 mls/hr IV Q24H [facility] Last Admin: 10/26/16 10:10 Dose: 100 mls/hr Lidocaine (Lidoderm 5%) 700 mg TOP Q24H [facility] Last Admin: 10/26/16 10:11 Dose: 700 mg Magnesium Oxide (Magnesium Oxide) 400 mg PO ONETIME ONE Stop: 10/27/16 09:01 Magnesium Sulfate (Pharmacy To Dose - Magnesium Replacement) 0 dose .XX ASDIRECTED PRN PRN Reason: RX TO MONITOR MAG LEVELS Metoclopramide HCl (Reglan) 10 mg IVPUSH Q6H PRN PRN Reason: Other Metoprolol Tartrate (Lopressor) 5 mg IVPUSH Q4H PRN PRN Reason: Tachycardia Metronidazole (Flagyl) 500 mg PO Q8H [facility] Last Admin: 10/27/16 03:01 Dose: 500 mg Miscellaneous Information (Remove Patch) 1 ea TRDERM DAILY [facility] Last Admin: 10/26/16 10:04 Dose: 1 ea Miscellaneous Information (Remove Patch) 0 ea TRDERM Q24H [facility] Last Admin: 10/26/16 23:42 Dose: 1 ea Nicotine (Habitrol) 21 mg TRDERM DAILY [facility] Last Admin: 10/26/16 08:49 Dose: 21 mg Ondansetron HCl (Zofran) 4 mg IV Q6H PRN PRN Reason: Nausea/Vomiting Oxycodone HCl (Oxycontin) 10 mg PO Q12HR [facility] Last Admin: 10/26/16 20:19 Dose: 10 mg Oxycodone/Acetaminophen (Percocet 325-5 Mg) 1 tab PO Q4H PRN PRN Reason: break through pain Polyethylene Glycol (Miralax) 17 gm PO DAILY PRN PRN Reason: Constipation Potassium Chloride (Pharmacy To Dose - Potassium Replacement) 0 dose .XX ASDIRECTED PRN PRN Reason: RX TO MONITOR K LEVELS Saccharomyces Boulardii (Florastor) 250 mg PO BID [facility] Last Admin: 10/26/16 20:19 Dose: 250 mg Senna/Docusate Sodium (Senna Plus) 1 tab PO BID PRN PRN Reason: Constipation Last Admin: 10/24/16 08:45 Dose: 1 tab Sodium Chloride (Saline Flush) 10 ml FLUSH ASDIRECTED PRN PRN Reason: Keep Vein Open Last Admin: 10/23/16 22:37 Dose: 10 ml Temazepam (Restoril) 15 mg PO BEDTIME PRN PRN Reason: Sleep Tizanidine HCl (Zanaflex) 4 mg PO Q8H [facility] Last Admin: 10/27/16 02:57 Dose: 4 mg Discontinued Medications Diatrizoate Meglum/Diatrizoate Sod (Gastrografin 37%) 90 ml PO ONETIME ONE Stop: 10/24/16 12:17 Last Admin: 10/24/16 12:35 Dose: 90 ml Enoxaparin Sodium (Lovenox) 40 mg SUBCUT DAILY [facility] Last Admin: 10/24/16 08:45 Dose: 40 mg Hydromorphone HCl (Dilaudid) 1 mg IVPUSH ONETIME ONE Stop: 10/23/16 22:25 Last Admin: 10/23/16 22:38 Dose: 1 mg Hydromorphone HCl (Dilaudid) 0.5 mg IVPUSH ONETIME ONE Stop: 10/23/16 23:45 Last Admin: 10/23/16 23:52 Dose: 0.5 mg Hydromorphone HCl (Dilaudid) 0.5 mg IVPUSH Q1H PRN PRN Reason: Pain Last Admin: 10/24/16 05:20 Dose: 0.5 mg Hydromorphone HCl (Dilaudid) 1 mg IVPUSH Q4H PRN PRN Reason: Pain (severe 7-10) Last Admin: 10/26/16 06:54 Dose: 0.5 mg Sodium Chloride (Normal Saline) 1,000 mls @ 125 [facility]ls[facility] Admin: 10/23/16 22:37 Dose: 125 mls/hr Sodium Chloride (Normal Saline) 1,000 mls [facility] Admin: 10/26/16 00:19 Dose: 150 mls/hr Promethazine HCl 12.5 mg/ (Sodium Chloride) 50.5 mls @ 100 mls/hr IV Q6H PRN PRN Reason: Nausea/Vomiting Dextrose/Sodium Chloride (Dextrose 5%-Normal Saline) 1,000 mls @ 125 mls[facility] Last Admin: 10/24/16 11:55 Dose: 125 mls/hr Magnesium Sulfate 2 gm/ Premix 50 mls @ 25 mls/hr IV ONETIME ONE Stop: 10/25/16 14:59 Last Admin: 10/25/16 13:18 Dose: 25 mls/hr Iopamidol (Isovue-300 (61%)) 125 ml IVPUSH ONETIME ONE Stop: 10/24/16 12:17 Last Admin: 10/24/16 12:35 Dose: 125 ml Ketorolac Tromethamine (Toradol) 30 mg IVPUSH Q6H [facility] Last Admin: 10/27/16 06:20 Dose: 30 mg Lorazepam (Ativan) 1 mg IV Q6H PRN PRN Reason: Anxiety Metoclopramide HCl (Reglan) 10 mg IVPUSH Q6H [facility] Last Admin: 10/24/16 13:08 Dose: 10 mg Miscellaneous Information (Remove Patch) 1 ea TRDERM Q72H [facility] Stop: 10/27/16 07:16 Ondansetron HCl (Zofran) 4 mg IVPUSH ONETIME ONE Stop: 10/23/16 22:23 Last Admin: 10/23/16 22:36 Dose: 4 mg Ondansetron HCl (Zofran) 4 mg IVPUSH Q6H PRN PRN Reason: Nausea Pneumococcal Polyvalent Vaccine (Pneumovax 23) 0.5 ml SUBCUT .ONCE ONE Stop: 10/25/16 09:01 Scopolamine (Transderm-Scop) 1.5 mg TOP ONETIME ONE Stop: 10/24/16 07:03 Last Admin: 10/24/16 08:46 Dose: 1.5 mg *Q Meaningful Use (DIS) - VTE *Q VTE Criteria *Q: - Stroke *Q Stroke Criteria *Q: - AMI *Q AMI Criteria *Q:
[2016-10-27] MEDS ORDERED: Magnesium Oxide 400 MG Tab PO ONE (09:00)
[2016-10-27] MEDS ORDERED: Ibuprofen 800 MG Tab PO PRN (09:08)
[2016-10-27] MEDS: Saccharomyces Boulardii (Probiotic) 250 MG Cap PO SCH (09:32)
[2016-10-27] MEDS: oxyCODONE ER 10 MG TAB.ER PO SCH (10:33)
[2016-10-27] MEDS: Nicotine 21 MG/24 Hr Patch TRDERM SCH (10:59)
[2016-10-27] MEDS: Levofloxacin/Dextrose 5%-Water 750 MG in Premix Bag 1 BAG IV SCH (11:02)
[2016-10-27] MEDS: Lidocaine 5% 700 MG Patch TOP SCH (11:04)
[2016-10-27 12:33] VITALS: BP 133/79
[2016-10-27] MEDS: [UNRECOGNIZED DRUG - REMARK] TRDERM SCH (12:43)
== END 2016-10-27 15:35 | disposition home or self-care (01) | DRG 351 ==
LOC: JD.ED 21:54 → JD.MS 10-24 00:27
PROVIDERS: ADMIT Internal Medicine; ATTEND Internal Medicine
DX: M62.838 Other muscle spasm (principal); R10.9 Unspecified abdominal pain; R07.89 Other chest pain; R04.0 Epistaxis; D69.6 Thrombocytopenia, unspecified; J98.11 Atelectasis; J90 Pleural effusion, not elsewhere classified; E83.42 Hypomagnesemia; R19.7 Diarrhea, unspecified; B19.20 Unspecified viral hepatitis C without hepatic coma; F41.9 Anxiety disorder, unspecified; F32.9 Major depressive disorder, single episode, unspecified; F17.200 Nicotine dependence, unspecified, uncomplicated; Z88.8 Allergy status to other drugs, medicaments and biological substances; Z79.899 Other long term (current) drug therapy
CPT/HCPCS: 36415; 71260; 71260-26; 74176; 74176-26; 74177; 74177-26; 80048; 80053; 80076; 80306; 81001; 82977; 83690; 83735; 85025; 85379; 86140; 87493; 90732; 96361; 96374; 96375; 96376; 97110-GP; 97162-GP; 99222; 99232; 99239; 99284; 99285-25; A9270-GY; G0009; J1170; J1650; J1885; J1956; J2405; J2765; J3475; J7040; J7042; J7050; Q9963; Q9967

== ENCOUNTER 2019-03-24 06:47 | Emergency (ER) | payer BC ==
[2019-03-24 07:13] VITALS: PULSE 86
[2019-03-24] MEDS ORDERED: HYDROmorphone 1 MG/ML Syringe IM ONE (07:24)
[2019-03-24] MEDS ORDERED: Ketorolac 60 MG/2 ML SDV IM ONE (07:25)
[2019-03-24] MEDS ORDERED: Cyclobenzaprine 10 MG Tab PO ONE (07:25)
--- NOTE | 2019-03-24 07:30 | EDM.PDOC ---
ED HPI GENERAL MEDICAL PROBLEM - General Chief Complaint: Back Pain or Injury Stated Complaint: BACK PAIN Time Seen by Provider: 03/24/19 07:13 Source of Information: Reports: Patient History Limitations: Reports: No Limitations - History of Present Illness INITIAL COMMENTS - FREE TEXT/NARRATIVE: The patient presents with right lower back pain. He slipped and fell coming down the stairs on Sunday. He did not hit his head or hurt his neck. He says the back pain has gotten worse. He has no numbness or weakness. He has no bowel or bladder problems. He has no headache, neck pain, chest pain or shortness of breath. Onset: Sudden Duration: Day(s): Location: Reports: Back Quality: Reports: Sharp Severity: Severe Improves with: Reports: Immobilization Worsens with: Reports: Movement Context: Reports: Trauma (Slipped and fell down some stairs) Associated Symptoms: Reports: No Other Symptoms Right Lower Back Pain Score (Numeric/FACES): 8 - Related Data Allergies Allergy/AdvReac Type Severity Reaction Status Date / Time codeine Allergy Nausea Verified 03/24/19 07:09 Home Meds: Home Meds Cyclobenzaprine [Flexeril] 10 mg PO TID PRN #20 tab 03/24/19 [Rx] Hydrocodone/Acetaminophen [Hydrocodon-Acetaminophen 5-325] 1 - 2 each PO Q6HR PRN #20 tablet 03/24/19 [Rx] Past Medical History - Past Health History Medical/Surgical History: Denies Medical/Surgical History Other HEENT History: wears reading glasses Other Respiratory History: states pt snores and stops breathing for brief periods. Gastrointestinal History: Reports: Hepatitis Other Musculoskeletal History: L) index finger--tip amputation. Psychiatric History: Reports: Anxiety, Depression Hematologic History: Reports: Other (See Below) Other Hematologic History: Hep C - Infectious Disease History Infectious Disease History: Reports: Chicken Pox, Hepatitis C - Past Surgical History Respiratory Surgical History: Reports: None GI Surgical History: Reports: Cholecystectomy Other Musculoskeletal Surgeries/Procedures:: pins/plate to R) ankle, L) shoulder rotator cuff surgery Social & Family History - Family History Family Medical History: Noncontributory - Tobacco Use Smoking Status *Q: Current Every Day Smoker Years of Tobacco use: 41 Packs/Tins Daily: 0.5 Used Tobacco, but Quit: No - Caffeine Use Caffeine Use: Reports: Coffee Other Caffeine Use: 3 or 4 cups a day - Alcohol Use Days Per Week of Alcohol Use: 2 Number of Drinks Per Day: 3 Total Drinks Per Week: 6 - Recreational Drug Use Recreational Drug Use: No - Living Situation & Occupation Living situation: Reports: Occupation: Employed ED ROS GENERAL - Review of Systems Review Of Systems: See Below Constitutional: Reports: No Symptoms HEENT: Reports: No Symptoms Respiratory: Reports: No Symptoms Cardiovascular: Reports: No Symptoms Endocrine: Reports: No Symptoms GI/Abdominal: Reports: No Symptoms : Reports: No Symptoms Musculoskeletal: Reports: Back Pain Neurological: Reports: No Symptoms ED EXAM,LOWER BACK PAIN/INJURY - Physical Exam Exam: See Below Exam Limited By: No Limitations General Appearance: Alert, No Apparent Distress Ears: Normal External Exam Nose: Normal Inspection Head: Atraumatic, Normocephalic Neck: Normal Inspection, Supple, Non-Tender Respiratory/Chest: No Respiratory Distress, Lungs Clear, Normal Breath Sounds Cardiovascular: Regular Rate, Rhythm, No Edema, No Murmur GI/Abdominal: Soft, Non-Tender, No Organomegaly, No Mass Back Exam: Other (Pain upon palpation to the left lower back. Equal strength bilaterally.) Extremities: Normal Inspection Neurological: Alert, No Motor/Sensory Deficits, Oriented x 3 DTR - Lower Extremities: 2+: Knee (L) Course - Vital Signs Last Recorded V/S: Last Vital Signs Temp 98.0 F 03/24/19 07:09 Pulse 86 03/24/19 07:09 Resp 22 H 03/24/19 07:09 BP 160/97 H 03/24/19 07:09 Pulse Ox 100 03/24/19 07:09 - Orders/Labs/Meds Orders: Active Orders 24 hr Category Date Time Status Lumbar Spine 2 or 3V [CR] Stat Exams 03/24/19 07:24 Taken Meds: Medications Discontinued Medications Generic Name Dose Route Start Last Admin Trade Name Freq PRN Reason Stop Dose Admin Cyclobenzaprine HCl 10 mg 03/24/19 07:25 Flexeril PO 03/24/19 07:26 ONETIME ONE Hydromorphone HCl 1 mg 03/24/19 07:24 Dilaudid IM 03/24/19 07:25 ONETIME ONE Ketorolac Tromethamine 60 mg 03/24/19 07:25 Toradol IM 03/24/19 07:26 ONETIME ONE - Re-Assessments/Exams Free Text/Narrative Re-Assessment/Exam: 03/24/19 07:29 I ordered an x-ray of his back, dilaudid 1mg IM, toradol 60mg IM, and flexeril 10mg PO. 03/24/19 07:55 He feels a little better. I will get him a prescription for flexeril and hydrocodone. Departure - Departure Time of Disposition: 08:00 Disposition: Home, Self-Care 01 Condition: Good Clinical Impression: Fall Qualifiers: Encounter type: initial encounter Qualified Code(s): W19.XXXA - Unspecified fall, initial encounter Low back pain Qualifiers: Chronicity: acute Back pain laterality: right Sciatica presence: without sciatica Qualified Code(s): M54.5 - Low back pain - Discharge Information *PRESCRIPTION DRUG MONITORING PROGRAM REVIEWED*: No *COPY OF PRESCRIPTION DRUG MONITORING REPORT IN PATIENT DURGA: No Prescriptions: Hydrocodone/Acetaminophen [Hydrocodon-Acetaminophen 5-325] 1 - 2 each PO Q6HR PRN #20 tablet PRN Reason: Pain Cyclobenzaprine [Flexeril] 10 mg PO TID PRN #20 tab PRN Reason: Pain Referrals: Diane Terrazas PA-C [Primary Care Provider] - 1 Week Forms: ED Department Discharge, ED Return to Work/School Form Additional Instructions: Take the medicine as prescribed. Ice your back for 15 minutes 3 times per day for 2 days. Take motrin and aleve also for pain. Please return if you are worse. - My Orders Last 24 Hours: My Active Orders 03/24/19 07:24 Lumbar Spine 2 or 3V [CR] Stat - Assessment/Plan Last 24 Hours: My Active Orders 03/24/19 07:24 Lumbar Spine 2 or 3V [CR] Stat
[2019-03-24 08:21] VITALS: BP 142/97
--- NOTE | 2019-03-24 11:14 | CR ---
Lumbar spine: AP, lateral and cone down lateral views centered to the lumbosacral junction were obtained. Comparison: No previous study. Vertebral body heights and disc spaces are maintained. Mild scattered endplate osteophytes are seen. Pedicles are intact. No subluxation or fracture is seen. Surgical clips are seen from prior cholecystectomy. Impression: 1. Minimal degenerative change. 2. Nothing acute is seen on three-view lumbar spine exam. Diagnostic code #2 This report was dictated in [place] Standard Time
== END 2019-03-24 08:20 | disposition home or self-care (01) ==
LOC: JD.ED 06:47
DX: M54.5 Low back pain (principal); Z88.5 Allergy status to narcotic agent; W10.9XXA Fall (on) (from) unspecified stairs and steps, initial encounter
CPT/HCPCS: 72100; 96372; 99283; A9270; J1170; J1885

== ENCOUNTER 2020-02-25 22:24 | Emergency (ER) | payer BC, MEDICAID ==
[2020-02-25 22:30] VITALS: BP 128/83; PULSE 85
[2020-02-25] MEDS ORDERED: LORazepam 2 MG/ML SDV IV ONE (22:51)
[2020-02-25] MEDS ORDERED: Metoclopramide 10 MG/2 ML SDV IVPUSH ONE (22:51)
[2020-02-25] MEDS ORDERED: levETIRAcetam 500 MG in Sodium Chloride 0.9% 100 ML IV ONE (22:54)
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
[2020-02-25] MEDS ORDERED: Dextrose 5%-0.9% NaCl 1,000 ML IV SCH (23:00)
[2020-02-25] MEDS ORDERED: levETIRAcetam 500 MG/5 ML SDV ONE (23:29)
[2020-02-25] MEDS ORDERED: Thiamine 100 MG in Sodium Chloride 0.9% 100 ML IV ONE (23:34)
[2020-02-26] MEDS ORDERED: Acetaminophen 325 MG Tab PO ONE (00:36)
--- NOTE | 2020-02-26 09:34 | CR ---
PROCEDURE INFORMATION: Exam: XR Chest, 1 View Exam date and time: 02/26/2020 12:23 AM Age: 59 years old Clinical indication: Patient HX: Fever, chronic alcoholic TECHNIQUE: Imaging protocol: XR of the chest Views: 1 view. COMPARISON: CT Chest w Cont 10/24/2016 12:22 PM FINDINGS: Lungs: Unremarkable. No consolidation. Pleural space: Unremarkable. No pleural effusion. No pneumothorax. Heart/Mediastinum: Unremarkable. No cardiomegaly. Bones/joints: Unremarkable. IMPRESSION: No acute findings. Thank you for allowing us to participate in the care of your patient. Dictated and Authenticated by: Herminio Jeter MD 02/26/2020 2:05 AM Central Time ([place] & [place]) [place]
== END 2020-02-26 01:15 ==
LOC: SUPCPDRO 22:24 → JD.ED 22:24
DX: F10.230 Alcohol dependence with withdrawal, uncomplicated (principal); F10.280 Alcohol dependence with alcohol-induced anxiety disorder; E86.9 Volume depletion, unspecified; E88.89 Other specified metabolic disorders; F17.210 Nicotine dependence, cigarettes, uncomplicated; Z88.5 Allergy status to narcotic agent; Z20.828 Contact with and (suspected) exposure to other viral communicable diseases
CPT/HCPCS: 36415; 71045; 80053; 80307; 83605; 83690; 83735; 85025; 85610; 85730; 86140; 87635; 93005; 96365; 96375; 99285; A9270; J1953; J2060; J2765; J7042; 93010; 99284; U0002

== ENCOUNTER 2020-07-06 20:46 | Emergency (ER) | payer MEDICAID ==
[2020-07-06] MEDS ORDERED: Ondansetron 4 MG/2 ML SDV IVPUSH ONE (21:13)
[2020-07-06] MEDS ORDERED: Sodium Chloride 0.9% 10 ML Syringe FLUSH PRN (21:13)
--- NOTE | 2020-07-06 21:22 | EDM.PDOC ---
<Cuco Garcia J - Last Filed: 07/07/20 00:22> ED HPI GENERAL MEDICAL PROBLEM - General Chief Complaint: Gastrointestinal Problem Stated Complaint: BLOOD IN THROAT Time Seen by Provider: 07/06/20 21:01 - Related Data Allergies Allergy/AdvReac Type Severity Reaction Status Date / Time codeine Allergy Severe Nausea Verified 07/06/20 21:00 Home Meds: Home Meds Codeine/Promethazine [Phenergan with Codeine] 5 ml PO Q4HR PRN #120 ml 07/06/20 [Rx] Cyclobenzaprine [Flexeril] 10 mg PO TID PRN 07/06/20 [History] Naproxen 250 mg PO BID PRN 07/06/20 [History] buPROPion [Wellbutrin] 100 mg PO DAILY 07/06/20 [History] Benzonatate [Tessalon Perle] 100 mg PO BID #10 capsule 07/07/20 [Rx] Departure - Departure Time of Disposition: 00:22 Disposition: Home, Self-Care 01 Clinical Impression: Cough with hemoptysis - Discharge Information Prescriptions: Codeine/Promethazine [Phenergan with Codeine] 5 ml PO Q4HR PRN #120 ml PRN Reason: Cough Benzonatate [Tessalon Perle] 100 mg PO BID #10 capsule Instructions: Hemoptysis, [id number] Referrals: Diane Terrazas PA-C [Primary Care Provider] - Forms: ED Department Discharge Additional Instructions: Return to the emergency room with any questions problems or worsening symptoms. You have had a prescription for Tessalon Perles, this is a medication to help with your cough, sent to the clinic pharmacy. <Julia Munguia V - Last Filed: 07/07/20 11:48> ED HPI GENERAL MEDICAL PROBLEM - General Source of Information: Reports: Patient, RN Notes Reviewed History Limitations: Reports: No Limitations - History of Present Illness INITIAL COMMENTS - FREE TEXT/NARRATIVE: Patient is a 59-year-old male who presents to the ED for the evaluation of his hemoptysis. Patient notes that roughly 1/2-hour prior to arrival to the ER, he coughed up what he would recall about a dime size clot of blood. He notes that since then he has been coughing up more bright red blood. This is not copious amounts in nature. He denies any chest pain, dizziness or lightheadedness, he has had no fevers or chills, he does state he has some nausea, and his states that he has had a "head cold" for the past 3 days, but was feeling better today, so she thought he was on the mend. Patient's primary care provider is Diane Terrazas. Patient has roughly a [id number] smoking history, and does have a history of alcohol abuse. Past Medical History HEENT History: Reports: Impaired Vision Other HEENT History: wears reading glasses Respiratory History: Reports: Other (See Below) Other Respiratory History: states pt snores and stops breathing for brief periods. Gastrointestinal History: Reports: Hepatitis Musculoskeletal History: Reports: Other (See Below) Other Musculoskeletal History: L) index finger--tip amputation. Psychiatric History: Reports: Anxiety, Depression Hematologic History: Reports: Other (See Below) Other Hematologic History: Hep C - Infectious Disease History Infectious Disease History: Reports: Chicken Pox, Hepatitis C, Novel Coronavirus - Past Surgical History GI Surgical History: Reports: Cholecystectomy Other Musculoskeletal Surgeries/Procedures:: pins/plate to R) ankle, L) shoulder rotator cuff surgery Social & Family History - Family History Family Medical History: No Pertinent Family History - Tobacco Use Tobacco Use Status *Q: Current Every Day Tobacco User Years of Tobacco use: 45 Packs/Tins Daily: 1 - Caffeine Use Caffeine Use: Reports: Coffee Other Caffeine Use: 3 or 4 cups a day - Recreational Drug Use Recreational Drug Use: No - Living Situation & Occupation Living situation: Reports: Occupation: Employed ED ROS GENERAL - Review of Systems Review Of Systems: Comprehensive ROS is negative, except as noted in HPI. ED EXAM, GENERAL - Physical Exam Exam: See Below Exam Limited By: No Limitations General Appearance: Alert, WD/WN, No Apparent Distress Throat/Mouth: Normal Inspection, Normal Lips, Normal Teeth, Normal Gums, Normal Oropharynx, Normal Voice, No Airway Compromise Head: Atraumatic, Normocephalic Neck: Normal Inspection Respiratory/Chest: No Respiratory Distress, Lungs Clear, Normal Breath Sounds, No Accessory Muscle Use, Chest Non-Tender, Other (pt does cough while I am in the room, there is a small amount of bloody mucus that the patient forcefully coughed up) Cardiovascular: Normal Peripheral Pulses, Regular Rate, Rhythm, No Edema Peripheral Pulses: 2+: Radial (L), Radial (R) GI/Abdominal: Normal Bowel Sounds, Soft, Non-Tender, No Distention, No Mass Extremities: Normal Inspection, Normal Capillary Refill Neurological: Alert, Oriented, Normal Cognition, No Motor/Sensory Deficits Psychiatric: Normal Affect, Normal Mood Skin Exam: Warm, Dry, Intact, Normal Color, No Rash Course - Vital Signs Last Recorded V/S: Last Vital Signs Temp 97.6 F 07/06/20 20:54 Pulse 63 07/07/20 00:15 Resp 16 07/07/20 00:15 BP 113/81 07/07/20 00:15 Pulse Ox 94 L 07/07/20 00:15 - Orders/Labs/Meds Orders: Active Orders 24 hr Category Date Time Status Peripheral IV Insertion Adult [OM.PC] Routine Oth 07/06/20 21:10 Ordered Labs: Laboratory Tests 07/06/20 07/06/20 07/06/20 Range/Units 21:33 21:33 21:33 WBC 7.25 (4.23-9.07) K/mm3 RBC 4.90 (4.63-6.08) M/mm3 Hgb 15.0 (13.7-17.5) gm/dl Hct 42.5 (40.1-51.0) % MCV 86.7 (79.0-92.2) fl MCH 30.6 (25.7-32.2) pg MCHC 35.3 (32.2-35.5) g/dl RDW Std Deviation 42.1 (35.1-43.9) fL Plt Count 183 (163-337) K/mm3 MPV 10.6 (9.4-12.3) fl Neut % (Auto) 35.9 (34.0-67.9) % Lymph % (Auto) 45.7 (21.8-53.1) % [place] % (Auto) 13.2 H (5.3-12.2) % Eos % (Auto) 4.1 (0.8-7.0) Baso % (Auto) 0.7 (0.1-1.2) % Neut # (Auto) 2.60 (1.78-5.38) K/mm3 Lymph # (Auto) 3.31 (1.32-3.57) K/mm3 [place] # (Auto) 0.96 H (0.30-0.82) K/mm3 Eos # (Auto) 0.30 (0.04-0.54) K/mm3 Baso # (Auto) 0.05 (0.01-0.08) K/mm3 PT 10.3 (9.7-12.0) SECONDS INR 0.96 APTT 25.4 (21.7-31.4) SECONDS Sodium 141 (136-145) mEq/L Potassium 4.3 (3.5-5.1) mEq/L Chloride 104 (98-107) mEq/L Carbon Dioxide 26 (21-32) mEq/L Anion Gap 15.3 H (5-15) BUN 21 H (7-18) mg/dL Creatinine 1.1 (0.7-1.3) mg/dL Est Cr Clr Drug Dosing 66.86 mL/min Estimated GFR (MDRD) > 60 (>60) mL/min BUN/Creatinine Ratio 19.1 H (14-18) Glucose 103 (74-106) mg/dL Calcium 9.2 (8.5-10.1) mg/dL Total Bilirubin 0.3 (0.2-1.0) mg/dL AST 20 (15-37) U/L ALT 33 (16-63) U/L Alkaline Phosphatase 47 (46-116) U/L Total Protein 7.5 (6.4-8.2) g/dl Albumin 3.9 (3.4-5.0) g/dl Globulin 3.6 gm/dL Albumin/Globulin Ratio 1.1 (1-2) Meds: Medications Discontinued Medications Generic Name Dose Route Start Last Admin Trade Name Fabianq PRN Reason Stop Dose Admin Benzonatate 200 mg 07/06/20 23:46 07/07/20 00:03 Benzonatate 100 Mg Cap PO 07/06/20 23:47 200 mg ONETIME ONE Administration Ondansetron HCl 4 mg 07/06/20 21:13 07/06/20 21:33 Ondansetron 4 Mg/2 Ml Sdv IVPUSH 07/06/20 21:14 4 mg ONETIME ONE Administration Promethazine HCl/Codeine 10 ml 07/07/20 23:15 Codeine/Promethazine 10-6.25 Mg/5 Ml Syrup 5 Ml Ud Cup PO 07/07/20 23:16 ONETIME ONE Promethazine HCl/Codeine 10 ml 07/06/20 23:16 07/06/20 23:40 Codeine/Promethazine 10-6.25 Mg/5 Ml Syrup 5 Ml Ud Cup PO 07/06/20 23:17 N ot Given ONETIME ONE Sodium Chloride 10 ml 07/06/20 21:13 07/06/20 21:33 Sodium Chloride 0.9% 10 Ml Syringe FLUSH 10 ml ASDIRECTED PRN Administration Keep Vein Open - Re-Assessments/Exams Free Text/Narrative Re-Assessment/Exam: 07/06/20 21:22 Patient presents to the ED for evaluation of his hemoptysis. I did discuss imaging purposes with Dr. Garcia any suggest doing a chest abdomen pelvis with IV contrast, to evaluate for possible varices versus PE versus other etiology. I have placed these orders we will get IV established with a CBC, CMP, coagulation studies, we will give him some Zofran for nausea management. He very well could have some irritation as well from having a "head cold" for the past couple days. 07/06/20 22:35 The patient's labs have returned, demonstrate no focal abnormalities. CT was waiting for her metabolic panel to result before scanning the patient. Departure - Departure Condition: Good - Discharge Information *PRESCRIPTION DRUG MONITORING PROGRAM REVIEWED*: Yes *COPY OF PRESCRIPTION DRUG MONITORING REPORT IN PATIENT DURGA: No Sepsis Event Note (ED) - Evaluation Sepsis Screening Result: No Definite Risk - Focused Exam Vital Signs: Vital Signs Pulse Resp BP Pulse Ox 07/07/20 00:15 63 16 113/81 94 L - My Orders Last 24 Hours: My Active Orders 07/06/20 21:10 Peripheral IV Insertion Adult [OM.PC] Routine - Assessment/Plan Last 24 Hours: My Active Orders 07/06/20 21:10 Peripheral IV Insertion Adult [OM.PC] Routine
[2020-07-06] MEDS ORDERED: Codeine/Promethazine 10-6.25 MG/5 ML Syrup 5 ML UD Cup PO ONE (23:16)
[2020-07-06] MEDS ORDERED: Benzonatate 100 MG Cap PO ONE (23:46)
[2020-07-07 00:36] VITALS: BP 113/81; PULSE 63
--- NOTE | 2020-07-07 09:28 | CT ---
CT chest Technique: Multiple axial sections through the chest were obtained. Intravenous contrast was utilized. Reconstructed coronal and sagittal images were also obtained. Comparison: Prior chest CT study of 10/24/16. Findings: No pericardial thickening is seen. Mediastinum and hilar regions show no adenopathy. Thoracic aorta shows mild atherosclerotic change without aneurysm. Mild scattered emphysematous change is seen. Subpleural blebs are noted within both upper lungs. No acute parenchymal change is appreciated. No pleural effusions or pneumothorax is appreciated. Several old bilateral rib fractures are noted which appear healed. No acute osseous finding is appreciated Impression: 1. Mild emphysematous change. 2. Several old healed rib fractures on both sides. 3. Nothing acute is appreciated. Diagnostic code #2 I agree with preliminary report from [facility], finalized on 07/07/20, 12:[address] abdomen and pelvis (with contrast) Technique: Multiple axial sections were obtained from above the dome of the diaphragm inferiorly through the pubic symphysis. Delayed images were also obtained through the abdomen and pelvis. Reconstructed coronal and sagittal were obtained. Comparison: Prior CT abdomen and pelvis exam of 10/24/16. Findings: Liver contains no focal abnormality. Surgical clips are noted from previous cholecystectomy. Spleen appears within normal limits in size. Left adrenal nodule is seen. This nodule currently measures 2.4 cm in size and previously measured 1.8 cm in size. This finding is most likely due to slightly enlarged adrenal adenoma. Right adrenal gland appears within normal limits. Kidneys show symmetric contrast enhancement without hydronephrosis or mass. Delayed images show contrast throughout the ureters as well as within the bladder. Pancreas shows no discrete abnormality. Abdominal aorta shows atherosclerotic change which continues into the iliac vessels. No aneurysm is seen. No retroperitoneal adenopathy or mesenteric abnormalities are seen. Appendix is seen which is normal. No pelvic mass or adenopathy is appreciated. Slight calcifications are seen within the prostate gland. Minimal diverticuli are seen within the sigmoid colon without inflammatory change of diverticulitis. Mild increased stool is seen throughout the colon. Bone window settings were reviewed which show minimal degenerative change scattered within the spine. No acute osseous finding is appreciated. Impression: 1. Enlarging nodule within the left adrenal gland. This most likely represents an enlarging adrenal adenoma. Right adrenal gland appears normal in size. 2. Prior cholecystectomy. 3. Mild increased stool within the colon. 4. Other nonacute findings as described above. Diagnostic code #2 I agree with preliminary report from [facility], finalized on 07/07/20, 12:46 AM CDT
[2020-07-07] MEDS ORDERED: Codeine/Promethazine 10-6.25 MG/5 ML Syrup 5 ML UD Cup PO ONE (23:15)
== END 2020-07-07 00:30 | disposition home or self-care (01) ==
LOC: JD.ED 20:46
DX: R04.2 Hemoptysis (principal); Z88.5 Allergy status to narcotic agent; Z72.0 Tobacco use
CPT/HCPCS: 36415; 71260; 74177; 80053; 85025; 85610; 85730; 96374; 99285; A9270; J2405; 99283

== ENCOUNTER 2024-01-14 09:00 | Day surgery (SDC) | payer MEDICAID ==
[~2024-01-14 09:00] MED LIST: Propofol 200 MG/20 ML SDV ONE; Sodium Chloride 0.9% 10 ML Syringe FLUSH PRN; Sodium Chloride 0.9% 10 ML Syringe FLUSH SCH
[2024-01-14] MEDS: Lactated Ringers 1,000 ML IV SCH (09:10)
[2024-01-14] MEDS ORDERED: Lidocaine 1% with EPINEPHrine 1:100,000 20 ML MDV ONE (09:26)
[2024-01-14] MEDS ORDERED: Bacitracin Oint 15 GM Tube ONE (09:26)
[2024-01-14] MEDS ORDERED: Lidocaine 2% 5 ML SDV ONE (10:14)
[2024-01-14] MEDS ORDERED: Propofol 200 MG/20 ML SDV ONE ×4 (10:15→11:34)
[2024-01-14] MEDS ORDERED: Lactated Ringers 1,000 ML IV ONE (11:00)
[2024-01-14 13:40] VITALS: BP 101/70; PULSE 77
== END 2024-01-14 13:43 ==
LOC: JD.SDS 09:00
PROVIDERS: ATTEND Surgery
DX: Z12.11 Encounter for screening for malignant neoplasm of colon (principal); K29.50 Unspecified chronic gastritis without bleeding; K21.00 Gastro-esophageal reflux disease with esophagitis, without bleeding; D12.2 Benign neoplasm of ascending colon; D12.0 Benign neoplasm of cecum; D12.3 Benign neoplasm of transverse colon; D12.7 Benign neoplasm of rectosigmoid junction; L57.0 Actinic keratosis; L82.1 Other seborrheic keratosis
CPT/HCPCS: 11200; 17000; 17003; 43239; 45380; 45385; A9270; J2704; J3490; J7120; 00813